=== PATIENT | female | born 1930 | race Caucasian/White ===

== ENCOUNTER → 2016-05-28 | Outpatient (CLI) | payer OTHER, MEDICARE | LOC: MMPC 10:00 | PROVIDERS: ATTEND Physician Assistant | DX: M54.5 Low back pain (principal); M48.06 Spinal stenosis, lumbar region; S32.011S Stable burst fracture of first lumbar vertebra, sequela; M41.9 Scoliosis, unspecified | CPT/HCPCS: 99214; G0463 ==

== ENCOUNTER 2016-06-05 13:17 | Inpatient (IN) | payer OTHER, MEDICARE ==
[2016-06-05] MEDS ORDERED: ONDANSETRON 4 MG/2 ML VIAL IVP ONE (13:24)
[2016-06-05] MEDS ORDERED: MORPHINE SULFATE 4 MG/1 ML IVP ONE (13:24)
[2016-06-05] MEDS ORDERED: Sodium Chloride 0.9% 1,000 ML PRIMARY IV ONE (13:24)
--- NOTE | 2016-06-05 13:27 | PDOC ---
Gen Adult / Medical Screen HPI - General Chief Complaint: General Medical Stated Complaint: abd pain Date Seen by Provider: 06/05/16 Time Seen by Provider: 13:23 Source: POSITIVE: Patient Exam Limitations: POSITIVE: No limitations Nurse's Notes Reviewed & Considered: Yes - Indicators Temperature Between 95 and 101 Degrees: Yes Respirations Between 12 and 20: Yes Blood Pressure Between 100-165 (sys) and 60-100 (ceron): Yes Pulse Range Between 60-105 (100 for age > 60 years): Yes Severe Pain (Greater than 5/10 Reported): Yes (6/10 rlq pain) Chest or Abdominal Pain: Yes Inability to Walk: No Pt Reports Active High Risk Cond. (TB/Hepatitis/HIV/Chemo): No Abnormal Mental Status: No - History of Present Illness Initial Comments: The patient was brought in via EMS for abdominal pain. Patient was preparing to go to lunch today, for which she took omeprazole. After taking her medication she developed abdominal pain in the right lower and lower back pain. She does have a history of lower back pain for which she has seen a neurosurgeon. The patient denies any headache, chest pain, shortness of breath , nausea vomiting or diarrhea, no hematuria or dysuria, no rashes, no myalgias, no anxiety. Her pain is worse with movement and is better when she sits still. Body Location Affected: REPORTS: Abdomen, Back Timing: REPORTS: Abrupt Duration: 1/2 hour Similar Symptoms Previously: No Recent Care Received: REPORTS: Denies Any Prior Injuries Related to Current Complaint?: No - Patient Home Medications Home Medications: Home Medications Losartan Potassium [Cozaar] 1 tab PO DAILY #30 tab 08/09/15 Metoprolol Tartrate 50 mg PO BID #60 tab 08/09/15 Spironolactone 25 mg ORAL QD #30 tab 08/09/15 Omeprazole 2 cap PO DAILY #60 cap 01/18/16 Warfarin Sodium [Coumadin] 2.5 mg PO DAILY 01/20/16 Omeprazole 2 cap PO DAILY #60 cap 02/08/16 HYDROcodone/APAP 5/325 Tab [[place] 5/325 Tab] 1 tab PO Q8H PRN #30 tab 04/09/16 methylPREDNISolone Dose Pack [Medrol Dose Pack] 16 mg PO DAILY shazia 04/09/16 Levothyroxine Sodium [Synthroid] 88 mcg ORAL QD #30 tab 04/11/16 Hydrocodone/Acetaminophen [Hydrocodon-Acetaminophen 5-325] 0.5 tab PO Q4- 6HRSPRN #20 tab 05/28/16 - Patient Allergies Allergies/Adverse Reactions: Allergies Allergy/AdvReac Type Severity Reaction Status Date / Time aspirin AdvReac Intermediate upset Verified 06/05/16 13:38 stomach, eggs AdvReac Intermediate severe Uncoded 06/05/16 13:38 nausea Past Medical History - heen HEENT History: Cataracts Cardiovascular History: Hypertension, DVTs Respiratory History: Denies History Gastrointestinal History: GERD Additional Gastrointestinal History: does take omeprazole Genitourinary History: Denies History Endocrine History: Hypothyroidism Musculoskeletal History: Denies History Neurological History: Denies History Blood Disorders: Clotting Disorders, Other (please comment) Additional Blood Disorders History: states had blood clots in [place]. lower legs in , and 2004 Psychiatric History: Denies History History of Sexually Transmitted Diseases: No Cancer History: Breast, Other (please comment) Cancer Treatment / Date(s) of Treatment: 07/1998 History of MDRO: No History of Other Communicable Diseases: No Alcohol Use: None Substance Use Type: None Previous Surgical History: Yes Type / Date of Surgery: partial mastectomy on left, rt hip replaced, cataracts removed Anesthesia Reactions: No Malignant Hyperthermia: No Significant Family History: No pertinent family hx ROS - Limitations ROS Limitations: No Limitations Constitution: REPORTS: Denies Symptoms Cardiovascular: REPORTS: Denies Cardiac Symptoms Respiratory: REPORTS: Denies Resp Symptoms Neurological: REPORTS: Denies Neuro Symptoms Gastrointestinal: REPORTS: Abdominal Pain Endocrine: REPORTS: Denies Symptoms Musculoskeletal: REPORTS: Denies MS Symptoms Genitourinary: REPORTS: Denies Symptoms Eyes: REPORTS: Denies Symptoms ENT: REPORTS: Denies Symptoms Skin: REPORTS: Denies Skin Symptoms Lympathic: REPORTS: Denies Lympathic Symptoms Immunologic: POSITIVE: Denies Symptoms Psychiatric: POSITIVE: Denies Psych Symptoms Gen Adult/Medical Screen Exam - General Appearance General Appearance: POSITIVE: Alert, Cooperative, No Acute Distress, No Evidence of Trauma - HEENT HEENT: POSITIVE: Head Inspection Nml, Eyes Inspection Nml, Ears Inspection Nml, Nose Inspection Nml, PERRL, EOMI - Pupils Pupil Size: 4 mm: Bilateral - Neck Neck: POSITIVE: Normal Inspection, Thyroid Normal - Respiratory Respiratory: POSITIVE: No Respiratory Distress, Breath Sounds Normal, Chest Non- Tender - Cardiovascular Cardiovascular: POSITIVE: Regular Rate & Rhythm, No Murmur, No Gallop, PMI Normal - Abdomen Abdomen: Soft: (All Quadrants), Normal Bowel Sounds: (All Quadrants), Denies Tenderness: (LLQ), (LUQ), (RUQ), No Splenomegaly: (All Quadrants), No Hepatomegaly: (All Quadrants), No Guarding: (All Quadrants), No Rebound: (All Quadrants), No Palpable Pulse: (All Quadrants), No Palpabale Mass: (All Quadrants), No Distention: (All Quadrants), No Rigidity: (All Quadrants), Tenderness Noted: (RLQ) - Back Back: POSITIVE: Normal Inspection - Neurological / Psychological Mental Status: POSITIVE: Mood Normal, Affect Normal Orientation: POSITIVE: Oriented x 3, Uncooperative - Skin Skin: POSITIVE: Normal Color, Warm, Dry, No Rash - Extremities Extremity: Non-Tender: (All Extremities), Normal ROM: (All Extremities), Normal Inspection: (All Extremities) Procedures - Laceration/Wound Repair Did patient have a laceration repair: No Gen Adlt/Medical Scrn Progress - Results Reviewed by me Xrays/CTs/US Reviewed by me: Yes Discussed with Radiologist: Yes Lab Results Reviewed: Yes Lab Results:: Laboratory Results 06/05/16 Range/Units 13:55 WBC 6.62 (4.8-10.8) 10^3/uL RBC 3.44 L (4.20-5.40) 10^6/uL Hgb 10.7 L (12.0-16.0) g/dL Hct 33.2 L (37.0-47.0) % MCV 96.5 (81-99) FL MCH 31.1 H (27-31) PG MCHC 32.2 L (33-37) g/dL RDW Std Deviation 49.7 (39-50) fL RDW Coeff of Aria 14.8 H (11.5-14.5) % Plt Count 248 (140-350) 10*3/uL MPV 10.3 (7.4-12.2) FL Immature Gran % (Auto) 0.3 (0-5) % Neut % (Auto) 66.8 (50-80) % Lymph % (Auto) 18.7 (10-50) % [place] % (Auto) 10.7 (5-15) % Eos % (Auto) 3.2 (0-8) % Baso % (Auto) 0.3 (0-1) % Immature Gran # (Auto) 0.02 10*3/UL Neut # (Auto) 4.42 10*3/UL Lymph # (Auto) 1.24 10*3/uL 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[employer] BUN/Creatinine Ratio 25.88 H (6-20) Glucose 92 (78-110) mg/dL Calculated Osmolality 294.0 H (267-292) mOsm/kg Calcium 10.3 (8.7-10.7) mg/dL Magnesium 1.4 L (1.6-2.4) mg/dL Total Bilirubin 0.8 (0.3-1.2) mg/dL AST 22 (8-39) IU/L ALT 30 (9-52) IU/L Alkaline Phosphatase 93 (38-126) IU/L C-Reactive Protein 1.1 H (0.0-0.9) mg/dL Total Protein 6.8 (6.1-8.0) g/dL Albumin 3.9 (3.5-4.8) g/dL Globulin 3.0 (2.50-4.10) g/dL Albumin/Globulin Ratio 1.30 (1.3-2.0) mg/g - Patient's Progress Pain Medication Addressed: POSITIVE: Yes Re-Examine Time: 15:23 Status: POSITIVE: Improved MDM / ED Course: Patient was examined, an IV started, blood drawn and sent to the lab for studies , CT scan abdomen and pelvis obtained. Patient received normal saline, morphine sulfate, and Zofran. Her pain did improve Findings: Hypomagnesemia, mild anemia, CT scan of the abdomen no acute intra- abdominal or intrapelvic abnormalities. Assessment: #1 hypomagnesemia and #2 mild anemia #3 abdominal pain resolved. Plan: Discharge home and follow up with primary care physician for anemia - Consult Counseled: POSITIVE: Patient, RE: Lab Results, RE: Radiology Results, RE: DX, RE : Need for F/U Patient Care Time - Estimated PCT Patient Care Time (In Minutes): 30 Vital Signs - VS Reviewed Vital Signs Reviewed: Yes Discharge Clinical Impression: Hypomagnesemia, Anemia, Abdominal pain Discharge Disposition: Discharged to Home Condition: Stable Patient Instructions Given at Discharge: Hypomagnesemia (ED), Anemia (ED), Acute Abdominal Pain (ED) Follow Up With: BENEDICTO YORK [Primary Care Provider] -
[2016-06-05 13:58] LABS: BASOPHILS # (AUTO) 0.02 10*3/UL; BASOPHILS % (AUTO) 0.3 % (0-1); EOSINOPHILS % (AUTO) 3.2 % (0-8); HEMATOCRIT 33.2 % (37.0-47.0); HEMOGLOBIN 10.7 g/dL (12.0-16.0); IMM GRAN % (AUTO) 0.3 % (0-5); IMM GRAN# (AUTO) 0.02 10*3/UL; LYMPHOCYTES # (AUTO) 1.24 10*3/uL; LYMPHOCYTES % (AUTO) 18.7 % (10-50); MEAN CORPUSCULAR HEMOGLOBIN 31.1 PG (27-31); MEAN CORPUSCULAR HGB CONC 32.2 g/dL (33-37); MEAN PLATELET VOLUME 10.3 FL (7.4-12.2); MONOCYTES # (AUTO) 0.71 10*3/UL (0.3-0.8); MONOCYTES % (AUTO) 10.7 % (5-15); NEUTROPHILS # (AUTO) 4.42 10*3/UL; NEUTROPHILS % (AUTO) 66.8 % (50-80); RDW COEFFICIENT OF VARIATION 14.8 % (11.5-14.5); RED BLOOD COUNT 3.44 10^6/uL (4.20-5.40); WHITE BLOOD COUNT 6.62 10^3/uL (4.8-10.8)
[2016-06-05 14:00] LABS: PLATELET MORPHOLOGY COMMENT NORMAL MORPHOLOGY (NORM)
[2016-06-05 14:11] LABS: ASPARTATE AMINO TRANSFERASE 22 IU/L (8-39); BILIRUBIN,TOTAL 0.8 mg/dL (0.3-1.2); BLOOD UREA NITROGEN 44 mg/dL (7-22); BUN/CREATININE RATIO 25.88 (6-20); C-REACTIVE PROTEIN 1.1 mg/dL (0.0-0.9); CALCIUM 10.3 mg/dL (8.7-10.7); CHLORIDE 104 meq/L (98-112); CREATININE 1.7 mg/dL (0.50-1.20); GLUCOSE 92 mg/dL (78-110); MAGNESIUM 1.4 mg/dL (1.6-2.4); POTASSIUM 5.3 meq/L (3.8-5.2); SODIUM 137 meq/L (135-145); TOTAL PROTEIN 6.8 g/dL (6.1-8.0)
[2016-06-05] MEDS ORDERED: Magnesium Sulfate 2gm (Premix) 2 GM in Premix 1 BAG IV ONE (14:27)
[2016-06-05 14:46] LABS: ERYTHROCYTE SEDIMENTATION RATE 53 MM/HR (0-20)
--- NOTE | 2016-06-05 15:13 | DI ---
CT ABDOMEN SCAN WITHOUT IV CONTRAST, 06/05/2016 2:18 PM : Clinical History: Abdominal pain. The patient has renal insufficiency and therefore no IV contrast wa s administered. Previous Exam: None at this facility. Scans are performed from the lower lung bases through the liver and kidneys without IV contrast. Sagi ttal and coronal reformatted images are generated. The lung bases are clear. The liver is normal. There is a 12 mm laminated gallstone in the neck of th e gallbladder. There is no edema of the gallbladder wall to indicate there is acute cholecystitis. A large hiatal hernia is present. There is no abnormality of the spleen, pancreas, and adrenal glands. Both kidneys have cystic lesions, and there is one 10 mm lesion toward the lower pole the right kidne y that has calcification around the margin of the cystic lesion. There is marked loss of renal parenc hyma involving the left kidney. There is no hydronephrosis or hydroureter. No renal or ureteral calcu li are present. There are no abnormal retrocrural or periaortic nodes. No ascites is present. There i s marked atrophy of the right psoas muscle with extensive fatty infiltration. READIN. There is marked loss of renal parenchyma of the left kidney. There is no hydronephrosis or hydrou reter. 2. Cholelithiasis. There is no evidence of acute cholecystitis. 3. Marked atrophy with fatty infiltration of the right psoas muscle. 4. Large hiatal hernia. CT PELVIS SCAN WITHOUT IV CONTRAST, 06/05/2016 2:18 PM : Clinical History: See above. Previous Exam: None. Scans are performed from the inferior margin of the liver and kidneys to the symphysis pubis without IV contrast. There is no free fluid collection and there is no adenopathy. The appendix is normal. The small bowel , terminal ileum, and ileocecal valve are normal. The colon is also normal. There is a small umbilica l hernia through which only mesenteric fat has herniated. The uterus and both ovaries are atrophic bu t normal. READING: Normal CT pelvis scan.
[2016-06-05] MEDS ORDERED: DEXAMETHASONE PF 10 MG/1 ML VIAL IVP ONE (15:52)
[2016-06-05] MEDS ORDERED: ONDANSETRON 4 MG/2 ML VIAL IVP PRN (18:17)
[2016-06-05] MEDS ORDERED: NORMAL SALINE 10 ML SYRINGE FLUSH IVP PRN (18:17)
[2016-06-05] MEDS ORDERED: ACETAMINOPHEN 325 MG TABLET PO PRN (18:17)
[2016-06-05] MEDS: Metoprolol TARTRATE Tab 50 MG TAB PO SCH (20:36)
[2016-06-05] MEDS: Warfarin Tab 2.5 MG TAB PO SCH (20:36)
[2016-06-05] MEDS ORDERED: Fleet Enema w/Mineral Oil 133ml RECTAL PRN (21:26)
[2016-06-05] MEDS: MAGNESIUM 400 MG/5 ML - 30 ML (MILK OF MAGNESIA) PO PRN (22:36)
[2016-06-05] MEDS: LOSARTAN 50 MG TABLET PO SCH (22:36)
--- NOTE | 2016-06-05 23:27 | PDOC ---
History and Physical - History of Present Illness Date and Time of Service: 06/05/2016, 2320 Chief Complaint: Back and abdominal pain History of Present Illness: This very pleasant 85-year-old female that has chronic kidney disease, genital disc disease, recently diagnosed, GERD, and a history of DVT, who came in today complaining that sometime after lunch and after she took her omeprazole she developed sudden onset of lower abdominal pain on the right side and back pain. She stated it was quite severe. She thinks she could be constipated, but denies any nausea, fever, chills or blood in the stool. She states that the pain was very similar to her prior admission in which we found degenerative lumbar disc disease. She met with Dr. Tate and his PA, Francoise Esteban, and they stated to the patient that she should not do surgery. They prescribe hydrocodone, and the patient did not try that for her pain today. They told the patient to take it sparingly and she tried to follow those recommendations. After the onset of pain, she just couldn't walk. She states it felt much better laying down. Any time she stands up the pain gets much worse. She had a CT scan of her abdomen and pelvis that showed a normal appendix, although not done with rectal contrast or contrast at all. In addition, the patient had severe renal atrophy on the right and psoas muscle atrophy on the right. She does not have any inflammatory symptoms. She pointed all over on her abdomen as to the location of her pain but concentrated most of it in the right lower quadrant and there was no rebound tenderness on my exam. Past Medical History Medical History: GERD. DVT. hypothyroidism. 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 Paroxysmal/chronic intermittent atrial fibrillation noted on prior hospital stay on Coumadin Surgical History: Cataract Extraction. Breast surgery for breast cancer. Total Hip Replacement, right side Pertinent Family History: No history of diabetes in the family. Both her parents had heart disease. Past Social History: She does not smoke or drink. She is 3 children described as healthy, son in [place], a child in [place], and another living elsewhere. She is . He is alone here in [facility] [address]. Tobacco Use: Never Smoker Substance Use Type: None Alcohol Use: None Medication / Allergies Home Medications: Home Medications Medication Instructions Recorded Confirmed Type Losartan Potassium [Cozaar] 1 tab PO DAILY #30 tab 08/09/15 06/05/16 Clinic Metoprolol Tartrate 50 mg PO BID #60 tab 08/09/15 06/05/16 Clinic Warfarin Sodium [Coumadin] 2.5 mg PO DAILY 01/20/16 06/05/16 History Omeprazole 2 cap PO DAILY #60 cap 02/08/16 06/05/16 Clinic Levothyroxine Sodium [Synthroid] 88 mcg ORAL QD #30 tab 04/11/16 06/05/16 Clinic Allergies/Adverse Reactions: Allergies Allergy/AdvReac Type Severity Reaction Status Date / Time aspirin AdvReac Intermediate upset Verified 06/05/16 13:38 stomach, eggs AdvReac Intermediate severe Uncoded 06/05/16 13:38 nausea Review of Systems - Constitutional Constitutional: REPORTS: Weakness (When she stands up in particular and tries to walk.) - Respiratory Respiratory: DENIES: Negative System Review, Cough, Sputum, Dyspnea At Rest, Dyspnea with Exertion, Pleuritic Pain, Hemoptysis, Wheezing, Other, See HPI - Cardiovascular Cardiovascular: DENIES: Negative System Review, Chest Pain, Edema, Syncope, Palpitations, Orthopnea, Paroxysmal Nocturnal Dyspnea, Other, See HPI - Gastrointestinal Gastrointestinal / Abdominal: REPORTS: Constipation, Abdominal Pain, See HPI - Genitourinary Genitourinary: REPORTS: Incontinence (Chronic) - Musculoskeletal Musculoskeletal: REPORTS: Back Pain Exam - Vitals Vital Signs: Vital Signs Vital Signs - Last Taken Temperature 97.0 F 06/05/16 20:31 Pulse Rate 63 06/05/16 20:31 Respiratory Rate 20 06/05/16 20:31 Blood Pressure 157/52 06/05/16 20:31 Pulse Ox 91 06/05/16 20:31 - General General Appearance: POSITIVE: No Acute Distress, Cooperative - Head Head Exam: POSITIVE: Normal Inspection, Normocephalic, Atraumatic - Eye Eye Exam: POSITIVE: No Scleral Icterus - ENT ENT Exam: POSITIVE: Mucous Membranes Moist - Neck Neck Exam: POSITIVE: Normal Inspection - Respiratory Respiratory Exam: POSITIVE: Clear to Auscultation - Bilaterally, Breathing Non Labored, Normal to Percussion and Palpation - Cardiovascular Cardiovascular Exam: POSITIVE: RRR, No Murmur, No Clicks, No Gallops, No Rubs, No JVD - GI/Abdominal GI/Abdominal Exam: POSITIVE: Normal Bowel Sounds, Non Tender, Non Distended, Soft - Rectal Rectal Exam: POSITIVE: Deferred - External Exam: POSITIVE: Deferred Exam: POSITIVE: Deferred - Extremities Extremities Exam: POSITIVE: No Clubbing Present, No Cyanosis Present, +1 Edema ( Some edema in lower extremities.) - Back Back Exam: POSITIVE: No CVA Tenderness - Neurological Neurological Exam: POSITIVE: Alert, Oriented x 3, No Facial Droop, Speech Intact / Clear, Moves All Extremities Equally - Psychiatric Psychiatric Exam: POSITIVE: Normal Affect, Normal Mood - Integumentary Integumentary Exam: POSITIVE: Normal Color, Warm, Dry, Intact - Central Line Examination Central Line Present on Admission: No Results - Labs CBC and BMP: 06/05/16 13:55 06/05/16 13:55 Labs - Last 24 Hours: Laboratory Results 06/05/16 Range/Units 13:55 WBC 6.62 (4.8-10.8) 10^3/uL RBC 3.44 L (4.20-5.40) 10^6/uL Hgb 10.7 L (12.0-16.0) g/dL Hct 33.2 L (37.0-47.0) % MCV 96.5 (81-99) FL MCH 31.1 H (27-31) PG MCHC 32.2 L (33-37) g/dL RDW Std Deviation 49.7 (39-50) fL RDW Coeff of Aria 14.8 H (11.5-14.5) % Plt Count 248 (140-350) 10*3/uL MPV 10.3 (7.4-12.2) FL Immature Gran % (Auto) 0.3 (0-5) % Neut % (Auto) 66.8 (50-80) % Lymph % (Auto) 18.7 (10-50) % [place] % (Auto) 10.7 (5-15) % Eos % (Auto) 3.2 (0-8) % Baso % (Auto) 0.3 (0-1) % Immature Gran # (Auto) 0.02 10*3/UL Neut # (Auto) 4.42 10*3/UL Lymph # (Auto) 1.24 10*3/uL [place] # (Auto) 0.71 (0.3-0.8) 10*3/UL Eos # (Auto) 0.21 10*3/UL Baso # (Auto) 0.02 10*3/UL WBC Morphology Comment Normal morphology (NORM) Plt Morphology Comment Normal morphology (NORM) RBC Morph Comment Normal morphology (NORM) ESR 53 H (0-20) MM/HR Sodium 137 (135-145) meq/L Potassium 5.3 H (3.8-5.2) meq/L Chloride 104 (98-112) meq/L Carbon Dioxide 22 L (23-33) meq/L Anion Gap 11 (5-20) BUN 44 H (7-22) mg/dL Creatinine 1.7 H (0.50-1.20) mg/dL 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 The right kidney is definitely with atrophy. This difficult for me to appreciate the psoas muscle atrophy, but it was read as positive on CT scan.) Assessment and Plan - Patient Problems (1) Lumbar degenerative disc disease Current Visit: Yes Status: Acute (2) Abdominal pain Current Visit: Yes Status: Acute Qualifiers: Abdominal location: generalized Qualified Description: Generalized abdominal pain Qualifier Code(s): (R10.84) Generalized abdominal pain (3) Acute low back pain Current Visit: No Status: Acute (4) Hypomagnesemia Current Visit: Yes Status: Acute (5) Atrial fibrillation Current Visit: No Status: Acute Comment: I suspect chronic and intermittent Qualifiers: Atrial fibrillation type: chronic Qualified Description: Chronic atrial fibrillation Qualifier Code(s): (I48.2) Chronic atrial fibrillation (6) Hypertension Current Visit: Yes Status: Chronic Qualifiers: Hypertension type: essential hypertension Qualified Description: Essential hypertension Qualifier Code(s): (I10) Essential (primary) hypertension (7) History of DVT (deep vein thrombosis) Current Visit: Yes Status: Chronic (8) Chronic kidney disease, stage IV (severe) Current Visit: Yes Status: Chronic - Assessment / Plan Additional Assessment/Plan Details: Admit the patient for observation. Get PT and OT consult, particularly for muscle strengthening. The patient states that she did not comply with outpatient therapy because she had a bad experience with therapy for her neck problems in the past. Try Solu-Medrol Dosepak again. We'll get sedimentation rate and CRP, if elevated, consider monitoring for potential discitis although on my spine examination palpation of the lower spine did locate the tender points for the back pain, but the pain was not exquisite enough to consider discitis as a diagnosis although it is in the differential. Continue home medications. Medications for pain. Overall, I think that the patient fails this then we may need to consider looking at other options for living such as either assisted living or even halfway facility. The patient did not recall a lot of details from the prior hospital stay, and I think she may warrant a cognitive evaluation saw have OT assess that DO NOT RESUSCITATE CODE STATUS.
[2016-06-06] MEDS: HYDROcodone-APAP 5 MG -325 MG TABLET PO PRN ×2 (05:00→21:08)
[2016-06-06 05:41] LABS: BASOPHILS # (AUTO) 0.01 10*3/UL; BASOPHILS % (AUTO) 0.2 % (0-1); EOSINOPHILS % (AUTO) 0 % (0-8); HEMATOCRIT 34.1 % (37.0-47.0); IMM GRAN % (AUTO) 0.2 % (0-5); IMM GRAN# (AUTO) 0.01 10*3/UL; LYMPHOCYTES # (AUTO) 0.59 10*3/uL; LYMPHOCYTES % (AUTO) 12.5 % (10-50); MEAN CORPUSCULAR HEMOGLOBIN 30.9 PG (27-31); MEAN CORPUSCULAR HGB CONC 32.3 g/dL (33-37); MONOCYTES # (AUTO) 0.12 10*3/UL (0.3-0.8); MONOCYTES % (AUTO) 2.5 % (5-15); NEUTROPHILS % (AUTO) 84.6 % (50-80); RDW COEFFICIENT OF VARIATION 14.7 % (11.5-14.5); RED BLOOD COUNT 3.56 10^6/uL (4.20-5.40); WHITE BLOOD COUNT 4.73 10^3/uL (4.8-10.8)
[2016-06-06] MEDS: LEVOTHYROXINE 88 MCG TABLET PO SCH (05:49)
[2016-06-06 05:56] LABS: BLOOD UREA NITROGEN 41 mg/dL (7-22); BUN/CREATININE RATIO 22.77 (6-20); C-REACTIVE PROTEIN 1.3 mg/dL (0.0-0.9); CALCIUM 10.4 mg/dL (8.7-10.7); CHLORIDE 103 meq/L (98-112); CREATININE 1.8 mg/dL (0.50-1.20); GLUCOSE 159 mg/dL (78-110); MAGNESIUM 2.2 mg/dL (1.6-2.4); POTASSIUM 4.8 meq/L (3.8-5.2); SODIUM 136 meq/L (135-145)
[2016-06-06 06:20] LABS: PLATELET MORPHOLOGY COMMENT NORMAL MORPHOLOGY (NORM)
[2016-06-06 06:23] LABS: ERYTHROCYTE SEDIMENTATION RATE 53 MM/HR (0-20)
[2016-06-06] MEDS: OMEPRAZOLE 20 MG CAPSULE PO SCH (06:48)
[2016-06-06] MEDS: LOSARTAN 50 MG TABLET PO SCH (08:33)
[2016-06-06] MEDS: Metoprolol TARTRATE Tab 50 MG TAB PO SCH ×2 (08:33→20:48)
--- NOTE | 2016-06-06 09:11 | DI ---
MRI LUMBAR SPINE SCAN WITHOUT IV CONTRAST, 06/06/2016 7:23 AM: Clinical History: Acute back pain. Previous Exam: 04/06/2016. Technique: Sagittal and axial T2 weighted; sagittal T1 weighted and T2 STIR; and axial PD. There is a compression fracture of L1 with displacement of the posterior margin of this vertebral bod y into the canal. There is loss of height of at least two thirds of the original height, and the abse nce of any increased signal intensity on the sagittal STIR sequence indicates this is old. It has not changed from the previous study. Since the previous exam, invagination of the inferior endplate with sclerosis of the anterior and superior margin of T12 has developed. The sagittal STIR sequence shows only modest increased activity in this vertebral body. The presence of sclerosis and the modest acti vity on the STIR sequence would be consistent with a subacute compression fracture with minimal loss of height. There are old compression fractures of the superior endplates of L2 and L5, unchanged. Dis c space narrowing is present at all lumbar levels with associated desiccation change. The cord termin ates at T12 and the conus medullaris is normal. The disc spaces from T9-10 through T11-12 show mild c ircumferentially bulging but not herniated discs without canal or neural foraminal stenosis. T12-L1 s hows displacement of the vertebral body into the canal but there is no canal stenosis or significant neural foraminal stenosis. L1-2 has projection of the inferior posterior margin of the body of L1 int o the canal but there is no canal stenosis. There is bilateral neural foraminal stenosis but the nerv e roots still exit appropriately. L2-3 and L3-4 have a circumferentially bulging but not herniated di scs without canal or neural foraminal stenosis. L4-5 has a circumferentially bulging but not herniate d disc and marked hypertrophic changes of the apophyseal joints and ligamentum flavum. The cross-sect ional area of the canal is at the lower limits of normal and there is no significant neural foraminal stenosis. L5-S1 has a bulging but not herniated disc without canal or neural foraminal stenosis. Readin. There is a subacute compression fracture of T12 with mild loss of height that is new since the pr evious study from 04/06/2016. There are old compression fractures of L1, L2, and L5. Portions of the L 1 vertebral body extending into the canal at T12-L1 and L1-2, and both levels show no canal or neural foraminal stenosis. 2. There are bulging but not herniated discs without canal or significant neural foraminal stenosis from T9-10 through T11-12, and from L2-3 through L5-S1. Extensive degenerative hypertrophic changes o f the apophyseal joints and ligamentum flavum are present at L4-5.
--- NOTE | 2016-06-06 14:18 | PDOC(PROG) ---
Date and Time of Service: 06/06/2016, 1420 Interval History: Patient doing a little better today. Pain is still there but not as bad. No nausea or vomiting. No chest pain. Is going to do therapy this afternoon. Objective : Data - Labs CBC and BMP: 06/06/16 05:08 06/06/16 05:08 Labs - Last 24 Hours: Laboratory Results 06/05/16 06/06/16 Range/Units 13:55 05:08 WBC 6.62 4.73 L (4.8-10.8) 10^3/uL RBC 3.44 L 3.56 L (4.20-5.40) 10^6/uL Hgb 10.7 L 11.0 L (12.0-16.0) g/dL Hct 33.2 L 34.1 L (37.0-47.0) % MCV 96.5 95.8 (81-99) FL MCH 31.1 H 30.9 (27-31) PG MCHC 32.2 L 32.3 L (33-37) g/dL RDW Std Deviation 49.7 49.5 (39-50) fL RDW Coeff of Aria 14.8 H 14.7 H (11.5-14.5) % Plt Count 248 275 (140-350) 10*3/uL MPV 10.3 11.0 (7.4-12.2) FL Immature Gran % (Auto) 0.3 0.2 (0-5) % Neut % (Auto) 66.8 84.6 H (50-80) % Lymph % (Auto) 18.7 12.5 (10-50) % Swisher % (Auto) 10.7 2.5 L (5-15) % Eos % (Auto) 3.2 0 (0-8) % Baso % (Auto) 0.3 0.2 (0-1) % Immature Gran # (Auto) 0.02 0.01 10*3/UL Neut # (Auto) 4.42 4.00 10*3/UL Lymph # (Auto) 1.24 0.59 10*3/uL Swisher # (Auto) 0.71 0.12 L (0.3-0.8) 10*3/UL Eos # (Auto) 0.21 0 10*3/UL Baso # (Auto) 0.02 0.01 10*3/UL WBC Morphology Comment Normal morphology Normal morphology (NORM) Plt Morphology Comment Normal morphology Normal morphology (NORM) RBC Morph Comment Normal morphology Normal morphology (NORM) ESR 53 H 53 H (0-20) MM/HR Sodium 137 136 (135-145) meq/L Potassium 5.3 H 4.8 (3.8-5.2) meq/L Chloride 104 103 (98-112) meq/L Carbon Dioxide 22 L 23 (23-33) meq/L Anion Gap 11 10 (5-20) BUN 44 H 41 H (7-22) mg/dL Creatinine 1.7 H 1.8 H (0.50-1.20) mg/dL Estimated GFR Electric Range Servicer Electric Range Servicer BUN/Creatinine Ratio 25.88 H 22.77 H (6-20) Glucose 92 159 H (78-110) mg/dL Calculated Osmolality 294.0 H 294.0 H (267-292) mOsm/kg Calcium 10.3 10.4 (8.7-10.7) mg/dL Magnesium 1.4 L 2.2 (1.6-2.4) mg/dL Total Bilirubin 0.8 (0.3-1.2) mg/dL AST 22 (8-39) IU/L ALT 30 (9-52) IU/L Alkaline Phosphatase 93 (38-126) IU/L C-Reactive Protein 1.1 H 1.3 H (0.0-0.9) mg/dL Total Protein 6.8 (6.1-8.0) g/dL Albumin 3.9 (3.5-4.8) g/dL Globulin 3.0 (2.50-4.10) g/dL Albumin/Globulin Ratio 1.30 (1.3-2.0) mg/g - Imaging MRI Status: Report Reviewed by Me (I reviewed the MRI report. No discitis. There is a new compression fracture from the prior hospital stay. No distention of falls at home so I suspect it's probably spontaneous.) Objective : Exam - General General Appearance: No Acute Distress, Cooperative Additional General Exam Details: Vital Signs - Last Taken Temperature 97.6 F 06/06/16 12:44 Pulse Rate 67 06/06/16 12:44 Respiratory Rate 18 06/06/16 12:44 Blood Pressure 111/48 06/06/16 12:44 Pulse Ox 94 06/06/16 12:44 Upright and eating lunch in chair today. - Eye Eye Exam: No Scleral Icterus - Respiratory Respiratory Exam: Clear to Auscultation - Bilaterally, Breathing Non Labored - Cardiovascular Cardiovascular Exam: RRR, No Murmur, No Clicks, No Gallops, No Rubs, No JVD - GI/Abdominal GI/Abdominal Exam: Normal Bowel Sounds, Non Tender, Non Distended, Soft - Extremities Extremities Exam: No Clubbing Present, No Cyanosis Present, +1 Edema (Edema in left wrist which is common for the patient after having lymph node removal on her left arm in the setting of breast cancer.) - Neurological Neurological Exam: Alert, Oriented x 3, No Facial Droop, Speech Intact / Clear, Moves All Extremities Equally Additional Neurological Exam Details: I still wonder cognitively if the patient might have a little mild impairment. I will get screening for that Assessment and Plan - Patient Problems (1) Thoracic compression fracture Current Visit: Yes Status: Acute Qualifiers: Encounter type: initial encounter Fracture type: closed Qualified Description: Compression fracture of thoracic vertebra, closed, initial encounter Qualifier Code(s): (S22.000A) Wedge compression fracture of unspecified thoracic vertebra, initial encounter for closed fracture (2) Lumbar degenerative disc disease Current Visit: Yes Status: Acute (3) Abdominal pain Current Visit: Yes Status: Acute Qualifiers: Abdominal location: generalized Qualified Description: Generalized abdominal pain Qualifier Code(s): (R10.84) Generalized abdominal pain (4) Acute low back pain Current Visit: No Status: Acute (5) Hypomagnesemia Current Visit: Yes Status: Acute (6) Atrial fibrillation Current Visit: No Status: Acute Qualifiers: Atrial fibrillation type: chronic Qualified Description: Chronic atrial fibrillation Qualifier Code(s): (I48.2) Chronic atrial fibrillation (7) Hypertension Current Visit: Yes Status: Chronic Qualifiers: Hypertension type: essential hypertension Qualified Description: Essential hypertension Qualifier Code(s): (I10) Essential (primary) hypertension (8) History of DVT (deep vein thrombosis) Current Visit: Yes Status: Chronic (9) Chronic kidney disease, stage IV (severe) Current Visit: Yes Status: Chronic - Assessment / Plan Additional Assessment/Plan Details: PT and OT. Pain control will be difficult in this patient due to her chronic kidney disease. I do not think she is a good candidate for anti-inflammatories. We can try with hydrocodone. That may be somewhat compromising due to the patient' s age. Can trial muscle relaxants if necessary but will hold off on them initially. Physical therapy and occupational therapy will likely be the mainstays of therapy. I think the patient is right on the border of being able to succeed at home and I think a swing bed may be necessary. No other medication changes today.
--- NOTE | 2016-06-06 15:53 | OT.PROG ---
Progress Note Progress Note: S" I am doing okay. I have a new compression fracture in my back." O: Pt. seen from 1430 to 1500 with pt. completing Mocha Cognitive Assessment and yet to be scored. Pt. moved from modified supine position (head of bed elevated) and moving to EOB in a guarded fashion secondary to LBP of 5/10 on a pain scale. Pt. reported that she was having a hard time moving. Pt. completed sit to stand transfer form EOB to w/c with use of 4 point walker CGA/min A and mod vc's for body mechanics and to protect her back. Reviewed back precautions with pt. and discussed long-equipment options. Pt. then completed toilet transfer min A/CGA with use of 4 point walker and mod vc's for body mechanics. Pt. then completed toileting with CGA for steading patient due to balance deficits present. A: Pt. appearing to have delayed motor planning and somewhat of a flat affect. Pt. will benefit from further therapy and education on the use of long- equipment to increase function and protect he back. P: Continue POC. Earline Maza OTD, OTR/L
--- NOTE | 2016-06-06 16:50 | PT.PROG ---
Progress Note Progress Note: S. Patient stated that she is in pain this afternoon. She reports that she normally uses a cane however would be willing to try a wheeled walker. O. Patient was wheeled to the therapy gym where she performed sit to stands, long arc quads and marches all x 10. Patient was fitted for a brace and wheeled walker. K-Tape was placed on her back to help decrease pain. Patient ambulated 175 feet back to her room where she was left in bed with alarm and call light. A. Patient tolerated exercises well, she stated that she felt better with brace and walker. She reports that she was able to ambulate further with the walker compared to the cane. Patient would continue to benefit from skilled therapy to increase, strength, mobility and endurance. P. Continue POC.
[2016-06-06] MEDS: Warfarin Tab 2.5 MG TAB PO SCH (20:48)
[2016-06-07] MEDS: LEVOTHYROXINE 88 MCG TABLET PO SCH (05:32)
[2016-06-07] MEDS: MAGNESIUM 400 MG/5 ML - 30 ML (MILK OF MAGNESIA) PO PRN (07:17)
[2016-06-07] MEDS: HYDROcodone-APAP 5 MG -325 MG TABLET PO PRN ×3 (07:17→20:12)
[2016-06-07] MEDS: OMEPRAZOLE 20 MG CAPSULE PO SCH (07:17)
[2016-06-07] MEDS: Metoprolol TARTRATE Tab 50 MG TAB PO SCH ×2 (08:14→20:12)
[2016-06-07] MEDS: LOSARTAN 50 MG TABLET PO SCH (08:14)
--- NOTE | 2016-06-07 10:52 | OT.PROG ---
Progress Note Progress Note: S: pt was brought to therapy by PT services. pt was in good spirits and little pain. pt reports she lives alone and has a house keeper 1 time a week. pt reports she completes all ADL's Vangie, drives around town for shopping and dr appointments. She has medications and just takes pills out of the bottle every day, although is looking into a pill project planner. pt reports when she shops she usually uses a debit card or a check book. O: pt completed The Cognitive Performance Test. Pt scored an overall score of 4.9/5.6 This score indicates that pt may live alone with weekly checks. pt may struggle with novel situations although routines should be ok. pt did struggle with the pills boxes. She required cues to fix a few pills although was able to fix Vangie. PT may struggle with new pills added to her regimin. pt did well with shopping. washing, toast and phone task. A: pt did well and should be safe to continue to live I'ly with housekeeping checking in with her as well as family. pt was advised that there are companies that make blister packs for her pills as well as people to help her sort them into the pill boxes. pt also reported she does not have a cell phone only a land line, although she also does not have a life line, which i would reccomend P: pt did well with the CPT. we will continue to work with ADL's and Activity tolerance to discharge her home
--- NOTE | 2016-06-07 11:23 | PT.PROG ---
Progress Note Progress Note: S. Patient stated that she is feeling a little better this morning. She reports that she continues to be sore however would like to go to therapy. O. Patient ambulated 175 feet to the therapy gym where she used the nu-step x 7 minutes then performed exercises in the form of; marches, heel toe raises, ball squeezes, clamshells and sit to stands all x 10 bilaterally. Patient used the arm bike x 5 minutes then was left with OT for further therapy. A. Patient tolerated exercises well, she continues to struggle with pain and weakness. Patient reports the brace decreases pain. Patient would continue to benefit from skilled therapy to increase strength, and decrease pain. P. Continue POC.
[2016-06-07] MEDS ORDERED: Fleet Enema w/Mineral Oil 133ml RECTAL ONE (13:08)
[2016-06-07] MEDS ORDERED: MAGNESIUM 400 MG/5 ML - 30 ML (MILK OF MAGNESIA) PO ONE (13:09)
--- NOTE | 2016-06-07 14:38 | PDOC(PROG) ---
Date and Time of Service: 06/07/2016, 1435 Interval History: Intermittently complains of back pain,. She stated it was okay on my examination and then later complained to the nurse that it was worse at that time. No fevers and no chills. No nausea or vomiting. Complains of constipation. She states the brace and therapy helped unlike in the past with her neck. Objective : Data - Labs CBC and BMP: 06/06/16 05:08 06/06/16 05:08 Objective : Exam - General General Appearance: No Acute Distress, Cooperative Additional General Exam Details: Vital Signs - Last Taken Temperature 97.6 F 06/07/16 12:48 Pulse Rate 63 06/07/16 12:48 Respiratory Rate 20 06/07/16 12:48 Blood Pressure 123/51 06/07/16 12:48 Pulse Ox 94 06/07/16 12:48 - Eye Eye Exam: No Scleral Icterus - Respiratory Respiratory Exam: Clear to Auscultation - Bilaterally, Breathing Non Labored - Cardiovascular Cardiovascular Exam: RRR, No Murmur, No Clicks, No Gallops, No Rubs, No JVD - GI/Abdominal GI/Abdominal Exam: Normal Bowel Sounds, Non Tender, Non Distended, Soft - Extremities Extremities Exam: No Clubbing Present, No Edema Present, No Cyanosis Present - Neurological Neurological Exam: Alert, Oriented x 3, No Facial Droop, Speech Intact / Clear, Moves All Extremities Equally Assessment and Plan - Patient Problems (1) Thoracic compression fracture Current Visit: Yes Status: Acute Qualifiers: Encounter type: initial encounter Fracture type: closed Qualified Description: Compression fracture of thoracic vertebra, closed, initial encounter Qualifier Code(s): (S22.000A) Wedge compression fracture of unspecified thoracic vertebra, initial encounter for closed fracture (2) Lumbar degenerative disc disease Current Visit: Yes Status: Acute (3) Abdominal pain Current Visit: Yes Status: Acute Qualifiers: Abdominal location: generalized Qualified Description: Generalized abdominal pain Qualifier Code(s): (R10.84) Generalized abdominal pain (4) Acute low back pain Current Visit: No Status: Acute (5) Hypomagnesemia Current Visit: Yes Status: Acute (6) Atrial fibrillation Current Visit: No Status: Acute Qualifiers: Atrial fibrillation type: chronic Qualified Description: Chronic atrial fibrillation Qualifier Code(s): (I48.2) Chronic atrial fibrillation (7) Hypertension Current Visit: Yes Status: Chronic Qualifiers: Hypertension type: essential hypertension Qualified Description: Essential hypertension Qualifier Code(s): (I10) Essential (primary) hypertension (8) History of DVT (deep vein thrombosis) Current Visit: Yes Status: Chronic (9) Chronic kidney disease, stage IV (severe) Current Visit: Yes Status: Chronic - Assessment / Plan Additional Assessment/Plan Details: continue PT and OT pain medicationsalso start giving hydrocodone more frequently when necessary pain. Meds for Constipation
--- NOTE | 2016-06-07 16:22 | PT.PROG ---
Progress Note Progress Note: S. Patient stated that she is very sore this afternoon. O. Patient was wheeled to the therapy gym where she had heat and performed exercises in the form of; heel toe raises, seated marches, sit to stands all x 10 bilaterally, nu-step x 5 minutes. Patient ambulated 175 feet back to her room where she was left in bed with alarm and call light. A. Patient continues to struggle with pain. Patient was very fatigued this afternoon after this mornings treatment. Patient was able to ambulate with stand by guard assist. Patient would continue to benefit from skilled therapy to increase strength, mobility and endurance. P. Continue POC.
[2016-06-07] MEDS ORDERED: POLYETHYLENE GLYCOL 3350 17 GM POWDER PO ONE (18:24)
[2016-06-07] MEDS: Warfarin Tab 2.5 MG TAB PO SCH (20:13)
[2016-06-08] MEDS: HYDROcodone-APAP 5 MG -325 MG TABLET PO PRN ×2 (04:54→17:34)
[2016-06-08] MEDS: LEVOTHYROXINE 88 MCG TABLET PO SCH (05:45)
[2016-06-08 06:13] LABS: PROTHROMBIN TIME 44.2 secs (9.7-11.4)
[2016-06-08] MEDS: OMEPRAZOLE 20 MG CAPSULE PO SCH (07:29)
[2016-06-08] MEDS: POLYETHYLENE GLYCOL 3350 17 GM POWDER PO SCH (08:29)
[2016-06-08] MEDS: Metoprolol TARTRATE Tab 50 MG TAB PO SCH ×2 (08:29→20:12)
[2016-06-08] MEDS: LOSARTAN 50 MG TABLET PO SCH (08:29)
--- NOTE | 2016-06-08 14:20 | PTI REPORT ---
Thank you for the referral of Swathi Cornell. She was seen on 06/06/16 for an inpatient evaluation secondary to generalized weakness. SUBJECTIVE: The patient is an 85-year-old female. The patient states she began experiencing low back and stomach pain two days ago with an insidious onset. She has no recollection of what could have caused her symptoms. The patient states the pain is worse when she is upright and moving around. She states pain relieves when she is lying down and sitting down. The patient states she is feeling better today than she has the last couple of days. The patient states [facility] but does have a building mechanic to help her with cleaning laundry but is unsure if building mechanic will be helping her anymore. The patient ambulates using a cane at home; however, nursing dropped off a walker today and recommended the patient begin using a walker. The patient states she has a walk-in shower at home with grab bars and shower bench. She sleeps in a standard bed. She states her most trouble in the bathroom comes while toileting as he toilet has no bars to hold onto, making rising and sitting difficult. The patient's ultimate goal is to return back to home. PAST MEDICAL HISTORY: Past medical history can be found in the patient's medical record. OBJECTIVE FINDINGS: Pain: The patient rates her pain as a 6/10 on the verbal analog scale (0=no pain , 10=worst pain) at worst today. Strength: Manual muscle testing of the lower extremities was performed during today's evaluation. The patient demonstrates generalized weakness of the lower extremities with no one side being weaker than the other side. For upper extremity strength grades, refer to OT eval. Bed mobility: The patient was able to come from supine to sit independently. Transfers: The patient was able to transfer from sit to stand with upper extremity support bilaterally, needing verbal cueing and supervision. Ambulation: The patient ambulated using standard walker x30 feet with min assist and verbal cueing. Balance: The therapist had the patient perform the Sadler balance scale as a standard outcome measure. The patient scored 27/56, placing her as a HIGH fall risk on the Sadler balance scale. The patient was able to perform most tasks on the Sadler balance scale with some form of assistance or supervision but was unable to stand on one leg or place alternating feet on stool. ASSESSMENT: Problem List: Generalized weakness Decreased strength Decreased endurance Patient requires supervision for most activities Short-Term Goals: To be met by discharge from inpatient: Patient will demonstrate ability to perform sit to stand transfer independently while using appropriate assistive device. Patient will demonstrate ability to ambulate 50 feet with appropriate assistive device for in home ambulation. Long-Term Goals: To be met following discharge from inpatient: Patient will be seen by outpatient physical therapy. Patient will be independent in all activities of daily living including cleaning and laundry. Patient will demonstrate ability to ambulate up to 300 feet with appropriate assistive device for community ambulation. TREATMENT PLAN: Patient will be seen B.I.D during the week and one time per day over the weekend as an inpatient for general strengthening. INITIAL TREATMENT: Treatment today consisted of the initial evaluation activities only. Dictated by: PING Pittman Supervised by: VICTORIANO Bello
--- NOTE | 2016-06-08 14:54 | OTI REPORT ---
Thank you for the referral of Swathi Cornell. She was seen on 06/06/16 for an occupational therapy inpatient evaluation secondary to generalized weakness. SUBJECTIVE: The patient is an 85-year-old female who came in today with low back pain. She states she doesn't remember how she necessarily broke her back, she states she felt like she was just walking between rooms and she started having pain. She states that she typically tries to quilt but she hasn't been lately because her hands are very stiff. Previously the patient's left arm has had extreme amounts of lymphatic fluid in it and this hasn't changed for a couple of years. The patient states she only leaves her house once a week and does not get out very often. The patient lives at [facility]. She uses a cane to ambulate as she does not feel safe all the time. Her medical history reveals that she has lumbar degenerative disease, acute back pain, a-fib, hypertension, a history of DVTs, and chronic kidney disease. The patient's bathroom was just set up this last year to be handicapped accessible. It is a walk-in shower, but she says the shower chair does not fit her very well. She does shower herself. The patient has a lead housekeeper to help with laundry and housekeeping. She has a higher toilet but does not have grab bars by the toilet. She states that sometimes she has trouble getting up from the toilet. The patient does have a standard bed. She typically can dress herself but she does have a light coil winder. She lost her sock aide that she had from a previous hip surgery. Prior to admission the patient did have a lead housekeeper complete her laundry and help with cleaning and she was independent with cooking, getting her groceries, and driving. The patient does not have any assistance available other than her lead housekeeper once a week. All of her family lives far away and she does not have anyone to assist her. The patient's goal is to go home. There have been some concerns about the patient's cognition which will be further assessed. PAST MEDICAL HISTORY: Past medical history can be found in the patient's medical record. OBJECTIVE FINDINGS: General observations: The patient was alert and oriented x4. Activities of daily living: The patient required max assist for lower extremity dressing. She has difficulty with , she says her back pain increases to 6/10 on the verbal analog scale when she bends over. She has difficulty with mobilizing her foot to over her knee to practice dressing. The patient is independent with eating and independent with grooming after set up. For showering, the patient will more than likely need mod assist secondary to decreased balance and decreased ability to reach down low. The patient requires max assist for dressing bottom half of lower extremities and requires mod assist for balance when standing. The patient reports she is independent with toileting; however, the patient requires min assist for toilet transfer. Range of motion: Right upper extremity is within functional limits for functional tasks. Left shoulder only demonstrates 60 degrees of movement and this has been this way for quite some time. Elbow active range of motion is within functional limits. Wrist range of motion is within functional limits. Strength: The patient is very weak on the left side. Within the range of her shoulder she demonstrates strength of 2-/5. Elbow flexion/extension is 3+/5. Wrist flexion/extension is 3+/5. On the right side shoulder flexion/abduction is 3+/5. Elbow flexion/extension is 4/5. Wrist flexion/extension is 4/5. Transfers: The patient was observed to require min assist for all functional transfers. Endurance: The patient demonstrates fair activity tolerance. ASSESSMENT: Problem List: Decreased upper extremity strength Decreased independence with ADLs Decreased cognitive processing abilities Short-Term Goals: To be met by discharge from inpatient: Patient will participate in a MOCA and CPT and scores will be given at that time. Patient will dress lower extremities with modified independence with use of adaptive equipment. Patient will complete a shower with stand by assist including transfer. Patient will be able to complete a toilet transfer independently. Patient will improve upper extremity strength to 4+/5 in the elbows and hands and to 4/5 in the right shoulder. Long-Term Goals: To be met following discharge from inpatient: Patient will be discharged back to her apartment, demonstrating independence and safety with all activities of daily living and functional transfers. TREATMENT PLAN: Patient will be seen B.I.D during the week and one time per day over the weekend as an inpatient to address the above goals and objectives. INITIAL TREATMENT: Treatment today consisted of the initial evaluation followed by the patient completing dressing tasks while sitting edge of bed, functional transfer to the chair, and standing at the sink. We discussed use of adaptive equipment which the patient was willing to try as well as further testing of her cognitive abilities. BERNICE
--- NOTE | 2016-06-08 16:08 | PT AM DAY ---
Diagnosis : Weakness AM - Physical Therapy S: The patient reports she feels like she is doing better everyday and is able to move around better. She states she had a good occupational therapy session this morning and was pleased that she was able to dress her lower legs and put on her back brace mainly on her own. O: Today's therapy started down in the physical therapy department after being brought down by occupational therapy. She performed therapeutic exercises and functional activities including stair stepper x10 minutes, sit to stands with verbal cues for propre hand placement, standing marches, step ups on the #2 box x10 bilaterally, and standing balance grid with bilateral hand hold assistance x2 and verbal cues for diagonal movements. Following this the patient was able to ambulate back up to her room with walker, gait belt, and contact guard assistance and demonstrated the ability to perform all bed mobility independently. A: We will continue progressing towards independence with activities for return to home. P: Continue seeing patient BID during the week and one time per day over the weekend for transfers, ambulation, and range of motion/strengthening exercises. BERNICE
--- NOTE | 2016-06-08 16:49 | PT.PROG ---
Progress Note Progress Note: S: Pt reports she is feeling a little better after lunch and is up for participating in physical therapy session. O: This afternoon's session focused on ambulation, endurance, and general strengthening. Pt ambulated x 150' using FWW w/ CGA and verbal cueing for safety. Pt performed seated LAQ bilaterally x 10 each leg. Pt performed seated heel raises x 10. Pt performed STS x 10 using UEs to push off chair and UE support on walker while in standing w/ SPV and verbal cueing for safety. A: Pt able to tolerate this afternoon's session w/o experiencing undo fatigue. States she felt a little tired at the end of the session but felt good overall. Continues to require supervision and assistance for ambulation. Continues to benefit from skilled PT as she progresses toward discharge. P: Continue to see pt 2x/day to improve strength, endurance, and ambulation ability. Zackery Hancock, SPT
--- NOTE | 2016-06-08 18:48 | PDOC(PROG) ---
Date and Time of Service: 06/08/2016, 1845 Interval History: States that her back pain does feel better. Doing well with therapy still and does like the back brace. No nausea or vomiting. She reported to the nurse today that she had some blood on urination, and on examination she ended up having prolapse of pelvic organs. Objective : Data - Labs CBC and BMP: 06/06/16 05:08 06/06/16 05:08 Labs - Last 24 Hours: Laboratory Results 06/08/16 Range/Units 05:17 PT 44.2 H (9.7-11.4) secs INR 4.17 (0.00-5.90) N/A Objective : Exam - General General Appearance: No Acute Distress, Cooperative Additional General Exam Details: Vital Signs - Last Taken Temperature 97.1 F 06/08/16 16:45 Pulse Rate 62 06/08/16 16:45 Respiratory Rate 16 06/08/16 16:45 Blood Pressure 133/51 06/08/16 16:45 Pulse Ox 95 06/08/16 16:45 On room air oxygen - Head Head Exam: Normal Inspection, Normocephalic, Atraumatic - Eye Eye Exam: No Scleral Icterus - Respiratory Respiratory Exam: Clear to Auscultation - Bilaterally, Breathing Non Labored - Cardiovascular Cardiovascular Exam: RRR, No Murmur, No Clicks, No Gallops, No Rubs, No JVD - GI/Abdominal GI/Abdominal Exam: Normal Bowel Sounds, Non Tender, Non Distended, Soft - Extremities Extremities Exam: No Clubbing Present, No Edema Present, No Cyanosis Present - Neurological Neurological Exam: Alert, Oriented x 3, No Facial Droop, Speech Intact / Clear, Moves All Extremities Equally Assessment and Plan - Patient Problems (1) Thoracic compression fracture Current Visit: Yes Status: Acute Qualifiers: Encounter type: initial encounter Fracture type: closed Qualified Description: Compression fracture of thoracic vertebra, closed, initial encounter Qualifier Code(s): (S22.000A) Wedge compression fracture of unspecified thoracic vertebra, initial encounter for closed fracture (2) Lumbar degenerative disc disease Current Visit: Yes Status: Acute (3) Acute low back pain Current Visit: No Status: Acute (4) Hypomagnesemia Current Visit: Yes Status: Acute (5) Atrial fibrillation Current Visit: No Status: Acute Qualifiers: Atrial fibrillation type: chronic Qualified Description: Chronic atrial fibrillation Qualifier Code(s): (I48.2) Chronic atrial fibrillation (6) Hypertension Current Visit: Yes Status: Chronic Qualifiers: Hypertension type: essential hypertension Qualified Description: Essential hypertension Qualifier Code(s): (I10) Essential (primary) hypertension (7) History of DVT (deep vein thrombosis) Current Visit: Yes Status: Chronic (8) Chronic kidney disease, stage IV (severe) Current Visit: Yes Status: Chronic (9) Abdominal pain Current Visit: Yes Status: Resolved Qualifiers: Abdominal location: generalized Qualified Description: Generalized abdominal pain Qualifier Code(s): (R10.84) Generalized abdominal pain (10) Mild cognitive impairment Current Visit: Yes Status: Acute Comment: Not quite consistent with dementia, but I think the patient is at risk for developing. She is really borderline between living independently and needing assisted living at a minimum. (11) Prolapse of female pelvic organs Current Visit: Yes Status: Acute Qualifiers: Prolapse type: cystocele Cystocele location: unspecified location Qualified Description: Cystocele, unspecified cystocele location Qualifier Code(s): (N81.10) Cystocele, unspecified - Assessment / Plan Additional Assessment/Plan Details: Given the pelvic organ prolapse noted today on exam., I think the patient would be a candidate for a pessary, but she needs to be willing to see obstetrics. I talked to the patient's primary care doctor who will discuss it with her over the next few days. Terms of the compression fracture, I'm pleased to say that pain is getting better, but the constipation is a problem on pain medications. In addition to narcotics, the pelvic organ prolapse is probably making that worse. Patient needs continued PT and OT. I think the patient would benefit strongly from a swing bed to continue to see some physical therapy and occupational therapy gains, allow for home evaluation , and good planning to help this patient do well at home as she does have a mild cognitive impairment that may be an early sign of dementia. I discussed all this with the patient and she agreed with the plan.
[2016-06-09] MEDS: HYDROcodone-APAP 5 MG -325 MG TABLET PO PRN ×2 (01:34→07:12)
[2016-06-09] MEDS: LEVOTHYROXINE 88 MCG TABLET PO SCH (05:43)
[2016-06-09 06:28] LABS: PROTHROMBIN TIME 37.2 secs (9.7-11.4)
[2016-06-09] MEDS: OMEPRAZOLE 20 MG CAPSULE PO SCH (07:13)
[2016-06-09] MEDS: LOSARTAN 50 MG TABLET PO SCH (08:05)
[2016-06-09] MEDS: Metoprolol TARTRATE Tab 50 MG TAB PO SCH ×2 (08:05→20:33)
[2016-06-09] MEDS: POLYETHYLENE GLYCOL 3350 17 GM POWDER PO SCH (08:05)
--- NOTE | 2016-06-09 12:58 | OT.PROG ---
Progress Note Progress Note: S"I am doing okay." O: Pt. seen from 929 to 1014 wuth pt. moving from recliner chair to w/c with use of 4 point walker with West/CGA. Pt. then rode down to therapy gym in her w/ c. Pt. completed sit to stand transfer with use of 4 pt. walker to move to UBE/ stattionary bike. pt. pedaled on bike using UE's for 12 min of continuous ex's on resistance level 1. Education then provided to pt. obn back safty and body mechanics for functional transfers. Pt. also worked on donning and doffing her socks with the use of a sock aide and requiring mod A and mod vcs;' A: pt. making some steady gains and seems to have delayed responses and information processing. P: Continue POC. Earline Maza OTD, OTR/L
--- NOTE | 2016-06-09 14:16 | PDOC(PROG) ---
Date and Time of Service: 06/09/2016, 1416 Interval History: No chest pain. No nausea or vomiting. Has gas, but no bowel movements per her history. She states she does not feel constipated however. She states her back pain has gone to about a 3 or 4 from a 10 at admission. She continues to do well with therapy. Objective : Data - Labs CBC and BMP: 06/06/16 05:08 06/06/16 05:08 Labs - Last 24 Hours: Laboratory Results 06/09/16 Range/Units 06:09 PT 37.2 H (9.7-11.4) secs INR 3.52 (0.00-5.90) N/A Objective : Exam - General General Appearance: No Acute Distress, Cooperative Additional General Exam Details: Vital Signs - Last Taken Temperature 97.7 F 06/09/16 12:47 Pulse Rate 74 06/09/16 12:47 Respiratory Rate 18 06/09/16 12:47 Blood Pressure 109/58 06/09/16 12:47 Pulse Ox 94 06/09/16 12:47 - Respiratory Respiratory Exam: Clear to Auscultation - Bilaterally, Breathing Non Labored - Cardiovascular Cardiovascular Exam: RRR, No Murmur, No Clicks, No Gallops, No Rubs, No JVD - GI/Abdominal GI/Abdominal Exam: Normal Bowel Sounds, Non Tender, Non Distended, Soft - Extremities Extremities Exam: No Clubbing Present, No Cyanosis Present, +1 Edema (In the left upper extremity.) - Neurological Neurological Exam: Alert, Oriented x 3, No Facial Droop, Speech Intact / Clear, Moves All Extremities Equally Assessment and Plan - Patient Problems (1) Thoracic compression fracture Current Visit: Yes Status: Acute Qualifiers: Encounter type: initial encounter Fracture type: closed Qualified Description: Compression fracture of thoracic vertebra, closed, initial encounter Qualifier Code(s): (S22.000A) Wedge compression fracture of unspecified thoracic vertebra, initial encounter for closed fracture (2) Lumbar degenerative disc disease Current Visit: Yes Status: Acute (3) Acute low back pain Current Visit: No Status: Acute (4) Hypomagnesemia Current Visit: Yes Status: Acute (5) Atrial fibrillation Current Visit: No Status: Acute Qualifiers: Atrial fibrillation type: chronic Qualified Description: Chronic atrial fibrillation Qualifier Code(s): (I48.2) Chronic atrial fibrillation (6) Hypertension Current Visit: Yes Status: Chronic Qualifiers: Hypertension type: essential hypertension Qualified Description: Essential hypertension Qualifier Code(s): (I10) Essential (primary) hypertension (7) History of DVT (deep vein thrombosis) Current Visit: Yes Status: Chronic (8) Chronic kidney disease, stage IV (severe) Current Visit: Yes Status: Chronic (9) Mild cognitive impairment Current Visit: Yes Status: Acute (10) Prolapse of female pelvic organs Current Visit: Yes Status: Acute Qualifiers: Prolapse type: cystocele Cystocele location: unspecified location Qualified Description: Cystocele, unspecified cystocele location Qualifier Code(s): (N81.10) Cystocele, unspecified - Assessment / Plan Additional Assessment/Plan Details: INR is 3.5 to today, hold Coumadin today. Check PT and INR tomorrow. Continue physical therapy and occupational therapy, pain management, brace for compression fracture. Probable swing bed tomorrow. Ultimately, I think the patient needs a well device plan for making sure that there are [facility]. This will include medication assistance and also likely physical therapy and some sort of exercise program post hospital stay.
[2016-06-10] MEDS: HYDROcodone-APAP 5 MG -325 MG TABLET PO PRN ×2 (01:05→07:47)
[2016-06-10] MEDS: LEVOTHYROXINE 88 MCG TABLET PO SCH (05:33)
[2016-06-10 06:52] LABS: PROTHROMBIN TIME 27.2 secs (9.7-11.4)
[2016-06-10] MEDS: OMEPRAZOLE 20 MG CAPSULE PO SCH (07:33)
[2016-06-10 07:44] VITALS: RESP 20
[2016-06-10] MEDS: LOSARTAN 50 MG TABLET PO SCH (08:13)
[2016-06-10] MEDS: Metoprolol TARTRATE Tab 50 MG TAB PO SCH (08:13)
[2016-06-10] MEDS: POLYETHYLENE GLYCOL 3350 17 GM POWDER PO SCH (08:14)
[2016-06-10 12:13] VITALS: TEMP 97.1
--- NOTE | 2016-06-10 13:37 | DCSUMMARY ---
Hospitalization Summary Admit Date: 06/05/16 Discharge Date: 06/10/16 Hospital Course: Discharge diagnoses 1. Subacute compression fracture of T12 2. History of for DVT 3. Hypothyroidism 4. History of paroxysmal A. fib 5. History of chronic back pain with lumbar degenerative disc disease 6. Marked atrophy of the left kidney 7. Atrophy of the right psoas muscle 8. Large hiatal hernia 9. Cholelithiasis 10. Mild cognitive impairment Hospital course This is a 85 years old female with medical history significant for history of for previous DVT, chronic back pain, hypothyroidism who came into the hospital because of back pain was severe and because of that she was admitted to the hospital an MRI of the back showed subacute T12 fracture with mild loss of height also old compression fracture of L1-L2 and L5 noted. Patient was brought to the hospital was put on pain medication started physical therapy and gradually her pain level decreased breath , it was felt that she still needs get physical therapy more before she would be able to go back home. I saw her later on during her hospital stay we continued with pain medication and physical therapy and we thought that she can be switched to swing back to continue physical therapy on swing bed status. Her INR was prolonged and the Coumadin was withheld. Laboratory Results 06/05/16 06/06/16 06/08/16 Range/Units 13:55 05:08 05:17 WBC 6.62 4.73 L (4.8-10.8) 10^3/uL RBC 3.44 L 3.56 L (4.20-5.40) 10^6/uL Hgb 10.7 L 11.0 L (12.0-16.0) g/dL Hct 33.2 L 34.1 L (37.0-47.0) % MCV 96.5 95.8 (81-99) FL MCH 31.1 H 30.9 (27-31) PG MCHC 32.2 L 32.3 L (33-37) g/dL RDW Std Deviation 49.7 49.5 (39-50) fL RDW Coeff of Aria 14.8 H 14.7 H (11.5-14.5) % Plt Count 248 275 (140-350) 10*3/uL MPV 10.3 11.0 (7.4-12.2) FL Immature Gran % (Auto) 0.3 0.2 (0-5) % Neut % (Auto) 66.8 84.6 H (50-80) % Lymph % (Auto) 18.7 12.5 (10-50) % [place] % (Auto) 10.7 2.5 L (5-15) % Eos % (Auto) 3.2 0 (0-8) % Baso % (Auto) 0.3 0.2 (0-1) % Immature Gran # (Auto) 0.02 0.01 10*3/UL Neut # (Auto) 4.42 4.00 10*3/UL Lymph # (Auto) 1.24 0.59 10*3/uL [place] # (Auto) 0.71 0.12 L (0.3-0.8) 10*3/UL Eos # (Auto) 0.21 0 10*3/UL Baso # (Auto) 0.02 0.01 10*3/UL WBC Morphology Comment Normal morphology Normal morphology (NORM) Plt Morphology Comment Normal morphology Normal morphology (NORM) RBC Morph Comment Normal morphology Normal morphology (NORM) ESR 53 H 53 H (0-20) MM/HR PT 44.2 H (9.7-11.4) secs INR 4.17 (0.00-5.90) N/A Sodium 137 136 (135-145) meq/L Potassium 5.3 H 4.8 (3.8-5.2) meq/L Chloride 104 103 (98-112) meq/L Carbon Dioxide 22 L 23 (23-33) meq/L Anion Gap 11 10 (5-20) BUN 44 H 41 H (7-22) mg/dL Creatinine 1.7 H 1.8 H (0.50-1.20) mg/dL Estimated GFR 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 Machine Operator 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 Machine Operator BUN/Creatinine Ratio 25.88 H 22.77 H (6-20) Glucose 92 159 H (78-110) mg/dL Calculated Osmolality 294.0 H 294.0 H (267-292) mOsm/kg Calcium 10.3 10.4 (8.7-10.7) mg/dL Magnesium 1.4 L 2.2 (1.6-2.4) mg/dL Total Bilirubin 0.8 (0.3-1.2) mg/dL AST 22 (8-39) IU/L ALT 30 (9-52) IU/L Alkaline Phosphatase 93 (38-126) IU/L C-Reactive Protein 1.1 H 1.3 H (0.0-0.9) mg/dL Total Protein 6.8 (6.1-8.0) g/dL Albumin 3.9 (3.5-4.8) g/dL Globulin 3.0 (2.50-4.10) g/dL Albumin/Globulin Ratio 1.30 (1.3-2.0) mg/g 06/09/16 06/10/16 Range/Units 06:09 06:24 WBC (4.8-10.8) 10^3/uL RBC (4.20-5.40) 10^6/uL Hgb (12.0-16.0) g/dL Hct (37.0-47.0) % MCV (81-99) FL MCH (27-31) PG MCHC (33-37) g/dL RDW Std Deviation (39-50) fL RDW Coeff of Aria (11.5-14.5) % Plt Count (140-350) 10*3/uL MPV (7.4-12.2) FL Immature Gran % (Auto) (0-5) % Neut % (Auto) (50-80) % Lymph % (Auto) (10-50) % [place] % (Auto) (5-15) % Eos % (Auto) (0-8) % Baso % (Auto) (0-1) % Immature Gran # (Auto) 10*3/UL Neut # (Auto) 10*3/UL Lymph # (Auto) 10*3/uL [place] # (Auto) (0.3-0.8) 10*3/UL Eos # (Auto) 10*3/UL Baso # (Auto) 10*3/UL WBC Morphology Comment (NORM) Plt Morphology Comment (NORM) RBC Morph Comment (NORM) ESR (0-20) MM/HR PT 37.2 H 27.2 H (9.7-11.4) secs INR 3.52 2.59 (0.00-5.90) N/A Sodium (135-145) meq/L Potassium (3.8-5.2) meq/L Chloride (98-112) meq/L Carbon Dioxide (23-33) meq/L Anion Gap (5-20) BUN (7-22) mg/dL Creatinine (0.50-1.20) mg/dL Estimated GFR BUN/Creatinine Ratio (6-20) Glucose (78-110) mg/dL Calculated Osmolality (267-292) mOsm/kg Calcium (8.7-10.7) mg/dL Magnesium (1.6-2.4) mg/dL Total Bilirubin (0.3-1.2) mg/dL AST (8-39) IU/L ALT (9-52) IU/L Alkaline Phosphatase (38-126) IU/L C-Reactive Protein (0.0-0.9) mg/dL Total Protein (6.1-8.0) g/dL Albumin (3.5-4.8) g/dL Globulin (2.50-4.10) g/dL Albumin/Globulin Ratio (1.3-2.0) mg/g Discharge instruction Diet regular Thickness started Medications Active Medications Acetaminophen (Tylenol) 650 mg PO Q6H PRN PRN Reason: Pain or Fever Last Admin: 06/05/16 20:36 Dose: 650 mg Acetaminophen/Hydrocodone Bitart ([place] 5/325 Tab) 1 tab PO Q6H PRN PRN Reason: Pain Last Admin: 06/10/16 07:47 Dose: 1 tab Sodium Chloride (Normal Saline 0.9%) 25 mls @ 200 mls/hr IV .Post Infusion PRN PRN Reason: No Primary IV for Flush ONLY Levothyroxine Sodium (Synthroid) 88 mcg PO AC BK@0630 [facility] Last Admin: 06/10/16 05:33 Dose: 88 mcg Losartan Potassium (Cozaar) 50 mg PO DAILY [facility] Last Admin: 06/10/16 08:13 Dose: 50 mg Magnesium Hydroxide (Milk Of Magnesia Susp) 30 ml PO Q6H PRN PRN Reason: Constipation Last Admin: 06/07/16 07:17 Dose: 30 ml Metoprolol Tartrate (Lopressor Tab) 50 mg PO BID [facility] Last Admin: 06/10/16 08:13 Dose: 50 mg Omeprazole (Prilosec) 40 mg PO AC BK [facility] Last Admin: 06/10/16 07:33 Dose: 40 mg Ondansetron HCl (Zofran Inj) 4 mg IVP Q4H PRN PRN Reason: NAUSEA / VOMITING Last Admin: 06/08/16 13:08 Dose: 4 mg Polyethylene Glycol (Miralax Packet) 17 gm PO DAILY [facility] Last Admin: 06/10/16 08:14 Dose: 17 gm Sodium Chloride (Saline Flush) 5 - 20 ml IVP BID PRN PRN Reason: Flush Last Admin: 06/08/16 13:08 Dose: 10 ml Follow-up patient status will be changed to swing bed status Exam - Vitals Vital Signs: Vital Signs Temperature 97.1 F Temperature Source Temporal Artery Scan Pulse Rate [Apical] 80 Pulse Rate [Pulse Oximeter] 60 Respiratory Rate 20 Blood Pressure [Right Arm] 105/44 Pulse Ox 93 Oxygen Delivery Method Room Air Height 5 ft 3.5 in Weight 188 lb
[2016-06-10] MEDS ORDERED: Metoprolol TARTRATE Tab 50 MG TAB PO ONE (21:03)
[2016-06-10] MEDS ORDERED: Warfarin Tab 2 MG TAB PO ONE (21:03)
[2016-06-10] MEDS ORDERED: DOCUSATE 100 MG CAPSULE ONE (21:03)
[2016-06-10] MEDS ORDERED: HYDROcodone-APAP 5 MG -325 MG TABLET PO ONE (21:04)
[2016-06-11] MEDS ORDERED: HYDROcodone-APAP 5 MG -325 MG TABLET PO ONE (04:20)
[2016-06-11] MEDS ORDERED: LEVOTHYROXINE 88 MCG TABLET PO ONE (06:09)
[2016-06-11 07:07] LABS: PROTHROMBIN TIME 21.3 secs (9.7-11.4)
[2016-06-11] MEDS ORDERED: OMEPRAZOLE 40 MG CAPSULE PO ONE (07:11)
[2016-06-11] MEDS ORDERED: Metoprolol TARTRATE Tab 50 MG TAB PO ONE (08:21)
[2016-06-11] MEDS ORDERED: DOCUSATE 100 MG CAPSULE ONE (08:22)
[2016-06-11] MEDS ORDERED: LOSARTAN 50 MG TABLET PO ONE (08:22)
[2016-06-11] MEDS ORDERED: POLYETHYLENE GLYCOL 3350 17 GM POWDER ONE (08:22)
--- NOTE | 2016-06-11 16:05 | OT PM DAY ---
Diagnosis : Weakness PM - Occupational Therapy S: The patient states she has had breast cancer on her left side; therefore her left arm is weak. She lives in [facility] by herself. Her family is here sporadically as they go to [place] for the winter. O: The patient was seen in her room. She agreed to do therapeutic exercises while in her bed. She completed therapeutic exercise with red theraband in shoulder flexion, shoulder extension, triceps extension, biceps flexion, and internal/external rotation, all x15 to increase her strength to assist with postural transitions such as sit to stands and other functional transfers. A: The patient completed therapy well. She does demonstrate weakness in her left upper extremity compared to her right. P: Continue seeing patient BID during the week and one time per day over the weekend for upper extremity strengthening, ADLs, and overall functional mobility. MTDD
--- NOTE | 2016-06-11 16:39 | OT AM DAY ---
Diagnosis : Weakness AM - Occupational Therapy S: The patient reports that she is doing a little better; however, she still has some back pain. O: Today the patient transferred from supine to sit independently. While sitting edge of bed she needed increased time but was able to doff her socks. She is still having slight difficulty with donning her socks but she reports that she is getting better. She only needed min assist to don her socks today. The patient was able to don lower extremity clothing with stand by assist and contact guard assist to pull pants from ankles to waist level. Today the patient was able to dress her upper extremities independently after set up. The patient was able to walk to the sink where she completed 5 minutes of hygiene activities while standing at the sink. The patient then walked 10 more feet before transferring to her wheelchair. She was brought down to therapy where she performed upper extremity strengthening exercises including yellow theraband resisted biceps curls, internal/external rotation, triceps extension, biceps curls, and shoulder extension with the right arm; she had difficulty with the left arm due to pain. We did some functional reaching activities with cones and she completed hand strengthening with power web and digi-flex. A: The patient is starting to make more gains. Her activity tolerance is slightly improving. She was able to complete more lower extremity dressing but she still requires min assist to don socks. Her balance and ability to stay upright for longer periods of time is slightly improving but she does fatigue easily. She reports that the wheeled walker has been beneficial. P: Continue seeing patient BID during the week and one time per day over the weekend for upper extremity strengthening, ADLs, and overall functional mobility. BERNICE
[2016-06-12 06:47] LABS: PROTHROMBIN TIME 19.5 secs (9.7-11.4)
--- NOTE | 2016-06-12 10:40 | OT AM DAY ---
Diagnosis : Weakness AM - Occupational Therapy S: The patient reports that she is making gains. O: Today the patient was able to complete therapeutic exercises including upper body ergometer x3 minutes forward and 3 minutes backward, new step x10 minutes, red theraband resisted horizontal abduction, biceps curls, internal/ external rotation, shoulder adduction, and shoulder extension. The patient then performed leg exercises with two pounds including kick outs and marching x1 minute each. She also performed sit to stands x10. The patient then ambulated back to her room x50 feet with her walker and then transferred into bed. The patient was issued a walker tray to help with carrying items in her home with increased safety. A: The patient is making gains. P: Continue seeing patient BID during the week and one time per day over the weekend for upper extremity strengthening, ADLs, and overall functional mobility. MTDD
== END 2016-06-10 13:42 | disposition swing bed (61) | DRG 544 ==
LOC: ER 13:17 → MED/SURG 18:03 → OBSVTOIN 06-06 10:08
PROVIDERS: ADMIT Family Medicine; ATTEND Family Medicine
DX: E83.42 Hypomagnesemia (principal); D64.9 Anemia, unspecified; R10.9 Unspecified abdominal pain; M54.9 Dorsalgia, unspecified; M48.54XA Collapsed vertebra, not elsewhere classified, thoracic region, initial encounter for fracture; I48.2 Chronic atrial fibrillation; I10 Essential (primary) hypertension; N18.4 Chronic kidney disease, stage 4 (severe); Z86.718 Personal history of other venous thrombosis and embolism; E03.9 Hypothyroidism, unspecified; I48.0 Paroxysmal atrial fibrillation; M51.36 Other intervertebral disc degeneration, lumbar region; N26.9 Renal sclerosis, unspecified; K44.9 Diaphragmatic hernia without obstruction or gangrene; K80.20 Calculus of gallbladder without cholecystitis without obstruction; G31.84 Mild cognitive impairment of uncertain or unknown etiology; N81.10 Cystocele, unspecified
CPT/HCPCS: 36415; 72148; 74176; 80048; 80053; 83735; 85025; 85610; 85652; 86140; 94761; 96365; 96375; 97110; 97162; 97166; 97530; 97535; 99284; J1100; J2270; J2405; J3475; J7030

== ENCOUNTER 2016-06-10 13:23 | Inpatient (IN) | payer OTHER, MEDICARE ==
[2016-06-10] MEDS ORDERED: MAGNESIUM 400 MG/5 ML - 30 ML (MILK OF MAGNESIA) PO PRN (13:47)
--- NOTE | 2016-06-10 13:48 | PDOC ---
History and Physical - History of Present Illness Date and Time of Service: 06/10/2016 1:40 PM Chief Complaint: Weakness, mid back pain History of Present Illness: This is a 85 years old female with medical history significant for history of for previous DVT, chronic back pain, hypothyroidism who came into the hospital because of back pain was severe and because of that she was admitted to the hospital an MRI of the back showed subacute T12 fracture with mild loss of height also old compression fracture of L1-L2 and L5 noted. Patient was brought to the hospital was put on pain medication started physical therapy and gradually her pain level decreased breath , it was felt that she still needs get physical therapy more before she would be able to go back home. I saw her later on during her hospital stay we continued with pain medication and physical therapy and we thought that she can be switched to swing back to continue physical therapy on swing bed status. Her INR was prolonged so Coumadin was withheld. Past Medical History Medical History: GERD. DVT. hypothyroidism. 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 Paroxysmal/chronic intermittent atrial fibrillation noted on prior hospital stay on Coumadin Surgical History: Cataract Extraction. Breast surgery for breast cancer. Total Hip Replacement, right side Pertinent Family History: No history of diabetes in the family. Both her parents had heart disease. Past Social History: She does not smoke or drink. She is 3 children described as healthy, son in [place], a child in [place], and another living elsewhere. She is . He is alone here in [facility] [address]. Substance Use Type: None Medication / Allergies Home Medications: Home Medications Medication Instructions Recorded Confirmed Type Losartan Potassium [Cozaar] 1 tab PO DAILY #30 tab 08/09/15 06/10/16 Clinic Metoprolol Tartrate 50 mg PO BID #60 tab 08/09/15 06/10/16 Clinic Warfarin Sodium [Coumadin] 2.5 mg PO DAILY 01/20/16 06/10/16 History Omeprazole 2 cap PO DAILY #60 cap 02/08/16 06/10/16 Clinic Levothyroxine Sodium [Synthroid] 88 mcg ORAL QD #30 tab 04/11/16 06/10/16 Clinic Allergies/Adverse Reactions: Allergies Allergy/AdvReac Type Severity Reaction Status Date / Time aspirin AdvReac Intermediate upset Verified 06/10/16 14:05 stomach, eggs AdvReac Intermediate severe Uncoded 06/10/16 14:05 nausea Review of Systems - Review of Systems All Systems: Reviewed & No Additional Complaints Except as Stated Exam - Vitals Vital Signs: Vital Signs Height 5 ft 3.5 in - General General Appearance: POSITIVE: No Acute Distress, Obese - Head Head Exam: POSITIVE: Normal Inspection, Atraumatic - Eye Eye Exam: POSITIVE: Normal Appearance - ENT ENT Exam: POSITIVE: Normal Exam - Neck Neck Exam: POSITIVE: Normal Inspection - Respiratory Respiratory Exam: POSITIVE: Clear to Auscultation - Bilaterally - Cardiovascular Cardiovascular Exam: POSITIVE: RRR - GI/Abdominal GI/Abdominal Exam: POSITIVE: Normal Bowel Sounds, Non Tender, Non Distended, Soft - Rectal Rectal Exam: POSITIVE: Deferred - External Exam: POSITIVE: Deferred - Extremities Extremities Exam: POSITIVE: Pedal Edema - Back Back Exam: POSITIVE: Normal Inspection - Neurological Neurological Exam: POSITIVE: Alert, CN II-XII Intact, Speech Intact / Clear, Moves All Extremities Equally - Psychiatric Psychiatric Exam: POSITIVE: Flat Affect - Integumentary Integumentary Exam: POSITIVE: Normal Color Assessment and Plan - Patient Problems (1) Thoracic compression fracture Current Visit: No Status: Acute Comment: Continue current pain medications, continue PT and OT Qualifiers: Encounter type: initial encounter Fracture type: closed Qualified Description: Compression fracture of thoracic vertebra, closed, initial encounter Qualifier Code(s): (S22.000A) Wedge compression fracture of unspecified thoracic vertebra, initial encounter for closed fracture (2) History of DVT (deep vein thrombosis) Current Visit: No Status: Chronic Comment: Continue Coumadin but at a lower dosage than what she was taking before will follow her INR (3) Hypertension Current Visit: No Status: Chronic Comment: Continue same medication but a lower dosage of the losartan as blood pressure was borderline today Qualifiers: Hypertension type: essential hypertension Qualified Description: Essential hypertension Qualifier Code(s): (I10) Essential (primary) hypertension
[2016-06-10] MEDS: HYDROcodone-APAP 5 MG -325 MG TABLET PO PRN (21:03)
[2016-06-10] MEDS: Metoprolol TARTRATE Tab 50 MG TAB PO SCH (21:04)
[2016-06-10] MEDS: Warfarin Tab 2 MG TAB PO SCH (21:04)
[2016-06-10] MEDS: DOCUSATE 100 MG CAPSULE PO SCH (21:04)
[2016-06-11] MEDS: HYDROcodone-APAP 5 MG -325 MG TABLET PO PRN ×2 (04:28→20:00)
[2016-06-11] MEDS: LEVOTHYROXINE 88 MCG TABLET PO SCH (06:15)
[2016-06-11] MEDS: OMEPRAZOLE 20 MG CAPSULE PO SCH (07:09)
[2016-06-11] MEDS: LOSARTAN 50 MG TABLET PO SCH (08:21)
[2016-06-11] MEDS: POLYETHYLENE GLYCOL 3350 17 GM POWDER PO SCH (08:21)
[2016-06-11] MEDS: DOCUSATE 100 MG CAPSULE PO SCH ×2 (08:21→20:00)
[2016-06-11] MEDS: Metoprolol TARTRATE Tab 50 MG TAB PO SCH ×2 (08:21→20:00)
--- NOTE | 2016-06-11 12:16 | OT.PROG ---
Progress Note Progress Note: S: Pt. stating that she was doing okay" O: Pt. seen from 829 to 929 with pt. completing BADL's seated. Pt. engaged in face and hand washing with the use of a wash cloth seated in her chair. Pt. then moved to edge of chair and completing 3 sets of 10 upper body ex's to include shoulder shrugs, scapular elevation, scapular adduction, elbow flexion and extension, pronation and supination, wrist flexion and extension. Education provided to pt. on safety with transfer and body body mechanics yet pt. will require further intervention to obtain carry over of learning. A: Pt. making steady progress in therapy. P: Continue POC. Earline Maza OTD, OTR/L
--- NOTE | 2016-06-11 15:44 | PT.PROG ---
Progress Note Progress Note: S. Patient stated that she is feeling better this afternoon and would like to go to the therapy gym. O. Patient ambulated 175 feet to the therapy gym where she used the nu-step x 5 minutes, then performed seated exercises in the form of; heel toe raises, marches, long arc quads, ball squeezes, clamshells, all x 10 bilaterally sit to stands x 5, Patient had edema massage to bilateral lower extremities to decrease edema. Patient was left with OT for further therapy. A. Patient tolerated exercises well, she had an increase in edema in left lower extremity, Patient was able to ambulate independently with front wheeled walker this afternoon. Patient would continue to benefit from skilled therapy at this time to continue strengthening and endurance. P. Continue POC.
[2016-06-11] MEDS: Warfarin Tab 2 MG TAB PO SCH (20:00)
[2016-06-12] MEDS: HYDROcodone-APAP 5 MG -325 MG TABLET PO PRN ×3 (04:16→20:24)
[2016-06-12] MEDS: LEVOTHYROXINE 88 MCG TABLET PO SCH (06:03)
[2016-06-12] MEDS: OMEPRAZOLE 20 MG CAPSULE PO SCH (06:47)
[2016-06-12] MEDS: POLYETHYLENE GLYCOL 3350 17 GM POWDER PO SCH (08:36)
[2016-06-12] MEDS: LOSARTAN 50 MG TABLET PO SCH (08:40)
[2016-06-12] MEDS: DOCUSATE 100 MG CAPSULE PO SCH ×2 (08:40→20:25)
[2016-06-12] MEDS: Metoprolol TARTRATE Tab 50 MG TAB PO SCH ×2 (08:40→20:24)
--- NOTE | 2016-06-12 11:41 | PT.PROG ---
Progress Note Progress Note: S. Patient stated that she is feeling better this morning, she reports that she continues to be sore this today however not as much as yesterday. O. patient ambulated 175 feet to the therapy gym where she had heat and performed seated exercises in the form of; heel toe raises, marches, long arc quads, ball squeezes, clamshells, all x 10 bilaterally. Patient ambulated 175 feet back to her room where she was left in her chair with alarm and call light. A. Patient tolerated treatment well this morning, she continues to have edema in lower extremities. Patient would continue to benefit from skilled therapy to increase strength, mobility and endurance. P. Continue POC. Home Evaluation 06/12 1300
--- NOTE | 2016-06-12 12:42 | PTI REPORT ---
Thank you for the referral of Swathi Cornell. She was seen on 06/11/16 for a swingbed evaluation secondary to generalized weakness. SUBJECTIVE: The patient is an 85-year-old female. The patient was initially hospitalized secondary to back pain. It has been found out that she has a compression fracture. The patient lives in [facility] across the [address] by herself with no family around. The patient's ultimate goal is to return home. She needs to be independent in all her transfers, ambulation, and self care activities before returning home independently. The patient is working with OT on dressing activities, hygiene, and self care skills. PAST MEDICAL HISTORY: Past medical history can be found in the patient's medical record. OBJECTIVE FINDINGS: Bed mobility: The patient was able to come from supine to sit independently. Transfers: The patient still needs minimal to moderate assist of one for transfers. Ambulation: The patient is able to ambulate 200-300 feet with assist of one and a walker with minimal pain. Pain: The patient's knees remain quite sore and continue to be a limiting factor. The patient rates her back pain as a 4 to 5/10 on the verbal analog scale (0=no pain, 10=worst pain), depending on the moment. Range of motion: The patient has good range of motion of the hips, she is missing a few degrees of extension in her knees and there is some swelling there. Upper extremity range of motion is within functional status to 150 degrees of flexion and abduction. ASSESSMENT: Problem List: Generalized weakness Decreased strength Decreased endurance Patient requires supervision for most activities Short-Term Goals: To be met by discharge from swingbed: Patient will demonstrate ability to perform sit to stand transfer independently while using appropriate assistive device. Patient will demonstrate ability to ambulate 50 feet with appropriate assistive device for in home ambulation. Long-Term Goals: To be met following discharge from swingbed: Patient will be seen by outpatient physical therapy. Patient will be independent in all activities of daily living including cleaning and laundry. Patient will demonstrate ability to ambulate up to 300 feet with appropriate assistive device for community ambulation. TREATMENT PLAN: Patient will be seen B.I.D during the week and one time per day over the weekend as a swingbed patient for general strengthening. It would be nice to see if we could encourage the patient to try some pool activities. INITIAL TREATMENT: Treatment today consisted of the swingbed evaluation activities only. BERNICE
[2016-06-12] MEDS: Warfarin Tab 2 MG TAB PO SCH (20:24)
[2016-06-13] MEDS: HYDROcodone-APAP 5 MG -325 MG TABLET PO PRN ×2 (05:37→12:32)
[2016-06-13] MEDS: LEVOTHYROXINE 88 MCG TABLET PO SCH (05:37)
[2016-06-13 06:52] LABS: PROTHROMBIN TIME 17.9 secs (9.7-11.4)
[2016-06-13 07:09] VITALS: TEMP 97.6
[2016-06-13] MEDS: OMEPRAZOLE 20 MG CAPSULE PO SCH (07:11)
[2016-06-13 07:29] VITALS: RESP 16
[2016-06-13] MEDS: DOCUSATE 100 MG CAPSULE PO SCH (08:19)
[2016-06-13] MEDS: LOSARTAN 50 MG TABLET PO SCH (08:19)
[2016-06-13] MEDS: Metoprolol TARTRATE Tab 50 MG TAB PO SCH (08:19)
[2016-06-13] MEDS: POLYETHYLENE GLYCOL 3350 17 GM POWDER PO SCH (08:19)
--- NOTE | 2016-06-13 10:25 | DCSUMMARY ---
Hospitalization Summary Admit Date: 06/10/16 Discharge Date: 06/13/16 Hospital Course: Discharge diagnoses Discharge diagnoses 1. Subacute compression fracture of T12 2. History of for DVT 3. Hypothyroidism 4. History of paroxysmal A. fib 5. History of chronic back pain with lumbar degenerative disc disease 6. Marked atrophy of the left kidney 7. Atrophy of the right psoas muscle 8. Large hiatal hernia 9. Cholelithiasis Hospital course This is a 85 years old female with medical history significant for history of previous DVT, chronic back pain, hypothyroidism who came into the hospital because of back pain which was severe and because of that she was admitted to the hospital, an MRI of the back showed subacute T12 fracture with mild loss of height also old compression fracture of L1-L2 and L5 noted. Patient was admitted to the hospital was put on pain medication started physical therapy and gradually her pain level decreased , it was felt that she still needs get physical therapy more before she would be able to go back home. I saw her later on during her hospital stay we continued with pain medication and physical therapy and we thought that she can be switched to swing back to continue physical therapy on swing bed status. Her INR was prolonged and the Coumadin was withheld for a short period. She continued to do well on swing bed she andhad a home evaluation the day before discharge she did well, on the day of discharge her pain seemed to be controlled her exam was unchanged from before with some swelling in the left arm because of lymphedema and slight edema in the legs is otherwise no new changes. We thought she could be discharged home continue physical therapy as an out patient. We held her Coumadin initially because it was prolonged and we put her back on lower dosage but her INR is still on the low side so I think we can put her back on the previous dosage I did tell her to repeat her INR next week. Patient said she had had a hydrocodone at home so we didn't give her a new prescription Laboratory Results 06/13/16 Range/Units 06:14 PT 17.9 H (9.7-11.4) secs INR 1.72 (0.00-5.90) N/A Discharge instruction Diet regular Activity as started Medications Home Medications Medication Instructions Recorded Confirmed Type Losartan Potassium [Cozaar] 1 tab PO DAILY #30 tab 08/09/15 06/10/16 Clinic Metoprolol Tartrate 50 mg PO BID #60 tab 08/09/15 06/10/16 Clinic Warfarin Sodium [Coumadin] 2.5 mg PO DAILY 01/20/16 06/10/16 History Omeprazole 2 cap PO DAILY #60 cap 02/08/16 06/10/16 Clinic Levothyroxine Sodium [Synthroid] 88 mcg ORAL QD #30 tab 04/11/16 06/10/16 Clinic HYDROcodone/APAP 5/325 Tab [Germfask 1 tab PO Q6H PRN #1 tab 06/13/16 Rx 5/325 Tab] Follow-up with the Dr. anderson as scheduled on the Condition at discharge was stable for discharge Exam - Vitals Vital Signs: Vital Signs Temperature 97.6 F Temperature Source Oral Pulse Rate [Apical] 68 Pulse Rate [Pulse Oximeter] 61 Respiratory Rate 16 Blood Pressure [Right Arm] 142/53 Pulse Ox 93 Oxygen Delivery Method Room Air Height 5 ft 3.5 in Weight 188 lb - General General Appearance: POSITIVE: No Acute Distress, Cooperative, Obese - Head Head Exam: POSITIVE: Normal Inspection, Atraumatic - Eye Eye Exam: POSITIVE: Normal Appearance - ENT ENT Exam: POSITIVE: Normal Exam - Neck Neck Exam: POSITIVE: Normal Inspection - Respiratory Respiratory Exam: POSITIVE: Clear to Auscultation - Bilaterally - Cardiovascular Cardiovascular Exam: POSITIVE: RRR - GI/Abdominal GI/Abdominal Exam: POSITIVE: Normal Bowel Sounds, Non Tender, Non Distended, Soft - Rectal Rectal Exam: POSITIVE: Deferred - Extremities Additional Extremities Exam Details: Left arm is swollen compared to the right arm which is old, slightly edema in the legs - Back Back Exam: POSITIVE: Normal Inspection - Neurological Neurological Exam: POSITIVE: Alert, Oriented x 3, CN II-XII Intact, Moves All Extremities Equally - Psychiatric Psychiatric Exam: POSITIVE: Normal Affect Patient Problems - Patient Problem List (1) Thoracic compression fracture Status: Acute Qualifiers: Encounter type: initial encounter Fracture type: closed Qualified Description: Compression fracture of thoracic vertebra, closed, initial encounter Qualifier Code(s): (S22.000A) Wedge compression fracture of unspecified thoracic vertebra, initial encounter for closed fracture (2) History of DVT (deep vein thrombosis) Status: Chronic (3) Hypertension Status: Chronic Qualifiers: Hypertension type: essential hypertension Qualified Description: Essential hypertension Qualifier Code(s): (I10) Essential (primary) hypertension
--- NOTE | 2016-06-13 15:46 | OTI REPORT ---
Thank you for the referral of Swathi Lopez Dexdarron. She was seen on 06/11/16 for an occupational therapy swingbed evaluation secondary to generalized weakness. SUBJECTIVE: The patient is an 85-year-old female who is being seen secondary to having pretty extreme back pain when she first came in. She reports that her pain is better today. She does live by herself in the [facility]. She has been living there for the last 20 years. She typically likes to sew, but she has not been able to do that for quite some time secondary to decreased hand strength. The patient reports that she has not had any falls within her home. She typically uses a cane to walk with but since she has been here in the hospital she does like the wheeled walker and she does feel more stable and safe with it. Her primary entrance is a level walkway; she is then able to take the elevator to her apartment. She reports that she has a walk in shower and a higher toilet seat. There are grab bars in the shower and by the toilet. The patient states she usually does her own cooking. She does not like meals on wheels. The patient reports that she used to go to the senior center quite a bit but does not get out of her apartment too often. She does drive to the grocery store once a week to get her groceries, but recently she states that is the only time that she leaves her apartment building. The patient states she does have a tar distributor operator. She says that the sock aide that was issued to her as an inpatient has been very helpful. The patient had assistance with laundry and cleaning. She does not have any immediate family that lives in town and does not have any assistance other than the senior center coming over and helping with her laundry and cleaning tasks. The patient does want to return back to her apartment. During the patient's inpatient stay she did complete a CPT which stated that she is able to live on her own with daily to weekly supervision, depending on the task. Eventually it would be nice to do a home evaluation with this patient as she does have a wheeled walker that she is not accommodated to in her home. She states that there are a few throw rugs in her home that may be a barrier. The patient was issued a walker tray previously and this will be beneficial to continue practice carrying items throughout her home in a functional manner. PAST MEDICAL HISTORY: Past medical history can be found in the patient's medical record. OBJECTIVE FINDINGS: General observations: The patient was alert and oriented x4. Range of motion: Left upper extremity range of motion is 0 to 70 degrees. Right upper extremity range of motion is 0 to 140 degrees. She has within functional limits for elbow range of motion and wrist range of motion. Strength: Strength in the left shoulder is 2/5. Strength in the right shoulder is 3+/5. Elbow flexion/extension is 4/5. Wrist flexion/extension is 4/5. Edema: The patient does have a very edematous left upper extremity. Activities of daily living: The patient is using adaptive equipment to dress self. At times she still needs min assist and verbal cues in order to complete lower extremity dressing. She is able to independently dress upper extremities after set up. The patient is independent with feeding self and toileting self. She may need min assist for a tub/shower transfer. Endurance: The patient's activity tolerance is improving, but tends to be in the FAIR range, as she does fatigue easily and needs rest breaks. ASSESSMENT: Problem List: Decreased upper extremity strength Decreased independence with ADLs Decreased cognitive processing abilities Short-Term Goals: To be met by discharge from swingbed: Patient will be able to dress self with modified independence with use of adaptive equipment. Patient will increase upper extremity strength to 4+/5 to complete upper extremity reaching tasks such as reaching in cupboard to grab dishes independently. Patient will be able to complete a shower independently. Patient will participate in a home evaluation in order to make accommodations as needed. Long-Term Goals: To be met following discharge from swingbed: Patient will be discharged back to her apartment, demonstrating independence and safety with all activities of daily living and functional transfers. TREATMENT PLAN: Patient will be seen B.I.D during the week and one time per day over the weekend as a swingbed patient to address the above goals and objectives. INITIAL TREATMENT: Treatment today consisted of the swingbed evaluation followed by dressing task. The patient used a tar distributor operator to doff socks with verbal cues. The patient was able to don pants with use of tar distributor operator with verbal cues. The patient still requires verbal cues and demonstration to use the sock aide smoothly; she was able to do so after demonstration and verbal cues. The patient functionally transferred from her chair to the sink where she completed 5 minutes of hygiene activities in front of the sink with stand by assistance. Downstairs in therapy she completed upper extremity strengthening activities including arm bike both forward and backward followed by red theraband resisted biceps curls, internal/external rotation, and shoulder extension x15 repetitions each. MTDD
--- NOTE | 2016-06-13 15:52 | OT PM DAY ---
Diagnosis : Weakness PM - Occupational Therapy S: The patient reports no new changes. O: Today the patient completed functional activities including carrying items on her walker tray. We educated the patient on how to open and close the walker tray. The patient struggled a little bit with opening and closing as it does have to fit into a small hole that will lock the tray. We practiced opening and closing the tray several times. We then had the patient walk and grasp cones from different height levels, place them on her tray, and then walk over to a table to place them on the table. We highly emphasized safety where the patient would have to hang onto a stable surface before reaching for the cone. The patient performed therapeutic exercises including theraband resisted shoulder extension, rows, biceps curls, and internal/external rotation followed by green power web for flexion/extension. The patient attempted to put on back brace, but because her back pain had increased to a 6/10, she had difficulty reaching around herself. A: The patient's back pain had increased this afternoon. We were planning on a home evaluation tomorrow; we will reassess her back pain in the morning to see if it will be appropriate to follow through with the home evaluation. The patient did struggle a little bit today with putting on the back brace secondary to her back pain. P: Continue seeing patient BID during the week and one time per day over the weekend for upper extremity strengthening, ADLs, and overall functional mobility. BERNICE
--- NOTE | 2016-06-14 11:04 | OT PM DAY ---
Diagnosis : Weakness PM - Occupational Therapy (Home Evaluation) S: The patient reports that she has never used a walker before in her home. After the home evaluation was done, the patient stated she learned a lot of safety techniques and it was very beneficial. O: Today the patient began by walking from the entrance of her apartment complex to the door of her apartment. The patient had to use her mckenzie to open up the second door; she was able to do this independently and safely. She was able to walk to the elevator and push the buttons safely and independently and then walked to her door. Initially the patient used her mckenzie to open the door and struggled quite a bit to get her walker through the door. She tended to reach too far and this was a balance concern. The therapist educated the patient on how to open the door safely which included opening the door a little bit and then stepping into the doorway. The door is heavier and tends to swing back toward the person that is going through the door. She took five steps in and out of the doorway safely. The patient was asked to go to her bathroom. Bathroom: The patient was able to turn on the lights. There was one throw rug on the floor that was a safety concern. The patient agreed to remove this throw rug. There was also a tiny one in front of the shower which was to stop water from getting on the floor. This rug did not tend to come up; also the patient does not use her walker that far into the bathroom to get into the shower. The patient does have a handicap shower which has a seat in the shower. There is a grab bar on the inside of the shower and one on the big wall. The patient was able to demonstrate sitting down in the shower. Getting up was a little bit of a struggle as she had to place both arms on the grab bars and pull herself up at a somewhat awkward angle. The patient does have a long handled shower hose and the supplier quality engineer on the bottom of the shower is good and does not present a problem for slipping. The patient has a higher toilet already in place. She was able to sit on the toilet. There is a grab bar by the toilet paper mills; the patient used this in order to sit down. She was able to maneuver her walker safely while doing this. The patient then used walker to go to the sink and practiced reaching into the lowest drawer. The patient had a little bit of a struggle with her walker when doing this. We had her move her walker slightly out of the way. We had to do a lot of education on holding onto a stable surface when reaching in lower positions. This was highly emphasized throughout the bathroom and then kitchen area. The patient was able to steady herself while reaching into the lower cupboard. She also was educated on kicking one of the legs a little bit backward in order to place less pressure on her back. We then went into her bedroom. Bedroom: In the bedroom there was a laundry basket that was in the way. This was placed on the opposite side of the bed that the patient gets into. A chair was removed from the patient's bedroom. The patient has a chair that she sits in when she dresses. The therapist had the patient demonstrate getting in and out of bed, which she was able to do independently. We then asked the patient to practice using the tray of her walker; she still needed a verbal cue in order to do this independently. We had the patient practice getting some clothes out of her closet, placing them on her tray, and walking to the chair that she typically dresses on. The patient does have a coin machine service repairer; however, she usually uses this for kitchen tasks. The therapist did issue the patient a coin machine service repairer after the home evaluation took place so that she can have this right next to her chair where she gets dressed. The patient was educated in the fact that she needs to use the coin machine service repairer and the sock aide to get dressed. The patient had reported that she had a shoe horn, but it is only three inches long and it requires the patient to pretty much bend completely over at the waist. Secondary to her back injury, we issued the patient a long handled shoe horn as well. This is to be placed on her dresser. We had the patient walk around her bed; she did need to use the cane for this. The patient was then asked to walk to the kitchen area. Kitchen: While in the kitchen the patient was educated on reaching into high and low cupboards. She had to place her walker sideways and use her tray to put the cup and plates on the tray. The patient had a big throw rug in her kitchen which her walker got caught on. We removed the big throw rug. The patient was able to safely reach in and out of her refrigerator low and high and was able to place items on her walker tray. The patient was asked to take a cup and a plate to the kitchen table which is in the dining room area. She was able to sit in a rolling chair--we had to practice several times to do this in the safest way possible. Basically the patient needs to hang onto her table while backing up to the chair which is up against a wall in the living room. Living room: The patient then walked to the couch and was able to sit on the couch and stand up independently. A: Modifications were made to the home. Two throw rugs were removed from the kitchen and the bathroom. The patient had a lot of education provided. Furniture was moved in order to make pathways safer. The patient would benefit from the senior center coming to help with medications and a shower a couple of times a week. We will set this up with the account planner. The patient would also benefit from a [facility]--this will be discussed with the senior center as well. At this time the patient is demonstrating enough independence to go home. She would still benefit from staying one more night so we can get services into place and practice using her walk to get through doorways when the door comes back toward her. This will be discussed with Dr. Desouza as well as the pillowcase cutter. P: Continue seeing patient BID during the week and one time per day over the weekend until discharge. BERNICE
--- NOTE | 2016-06-14 11:24 | OT AM DAY ---
Diagnosis : Weakness AM - Occupational Therapy S: The patient reports she is excited to do the home evaluation. She would like to go home once she knows it is safe. O: The therapist explained to the patient what will more than likely happen during the home evaluation this afternoon. Today we had the patient try as best as she could to do all of her dressing tasks. Today the patient used a wafer line worker to doff socks independently. She was able to don pants using the wafer line worker. The patient needed one verbal cue in order to use the sock aide more efficiently but was able to do so on her own. The patient was able to dress her upper extremities independently. More instruction on the walker tray was given. The patient still needs min assist in order to keep the tray in the most upright position where it is locked in place. The patient worked on putting on her back brace; she needed a verbal cue in order to find the strap that tightens the brace as she had put the brace on the opposite side. Downstairs in therapy she worked on upper extremity strengthening with red theraband resisted biceps curls, internal/external rotation, shoulder extension , and shoulder adduction followed by hand strengthening with green power web and digi-flex bilaterally. A: This afternoon we will complete a home evaluation with the patient to assess her needs upon discharge. P: Continue seeing patient BID during the week and one time per day over the weekend for upper extremity strengthening, ADLs, and overall functional mobility. BERNICE
--- NOTE | 2016-06-14 11:49 | OT AM DAY ---
Diagnosis : Weakness AM - Occupational Therapy S: The patient reports that she thought the home evaluation was very beneficial. O: Today the patient practiced using her trimmer operator as well as the shoe horn and sock aide for dressing tasks. The patient was able to doff socks. She used her nylons on the sock aide and it worked really well. She was able to don her pants using the trimmer operator and the long handled shoe horn worked very well with her shoes today. The patient was able to complete a toilet transfer with stand by assistance. Downstairs in therapy the patient performed upper extremity strengthening including upper body ergometer x3 minutes forward and 3 minutes backward, wall pulleys with two kilograms x10 repetitions for shoulder extension, rows, biceps curls, internal/external rotation, and shoulder abduction. A: The patient is making gains and doing everything well with modified independence. The patient is getting ready to be discharged at approximately 1: 00 today. The therapist will assist the patient one more time to make sure that the patient takes one more dry run through her home; the main thing being opening and getting through her door. P: Continue seeing patient BID during the week and one time per day over the weekend until discharge. BERNICE
== END 2016-06-13 13:00 | disposition home or self-care (01) | DRG 552 ==
LOC: MED/SURG 13:40 → UNDOADMIN 13:41
PROVIDERS: ADMIT Internal Medicine; ATTEND Internal Medicine
DX: S22.080A Wedge compression fracture of T11-T12 vertebra, initial encounter for closed fracture (principal); Z86.718 Personal history of other venous thrombosis and embolism; E03.9 Hypothyroidism, unspecified; I48.0 Paroxysmal atrial fibrillation; M51.36 Other intervertebral disc degeneration, lumbar region; N26.1 Atrophy of kidney (terminal); K44.9 Diaphragmatic hernia without obstruction or gangrene; K80.20 Calculus of gallbladder without cholecystitis without obstruction; I10 Essential (primary) hypertension
CPT/HCPCS: 36415; 85610; 94761; 97110; 97124; 97162; 97166; 97530; 97535

== ENCOUNTER → 2016-06-18 | Outpatient (CLI) | payer OTHER, MEDICARE | LOC: MMPC 09:00 | PROVIDERS: ATTEND Family Medicine | DX: Z79.01 Long term (current) use of anticoagulants (principal); Z51.81 Encounter for therapeutic drug level monitoring; Z86.718 Personal history of other venous thrombosis and embolism | CPT/HCPCS: 85610 ==

== ENCOUNTER → 2016-06-20 | Outpatient (CLI) | payer OTHER, MEDICARE | LOC: MMPC 09:00 | PROVIDERS: ATTEND Family Medicine | DX: M54.5 Low back pain (principal); N81.4 Uterovaginal prolapse, unspecified | CPT/HCPCS: 99214; G0463 ==

== ENCOUNTER → 2016-08-07 | Outpatient (CLI) | payer OTHER, MEDICARE | LOC: MMPC 09:00 | PROVIDERS: ATTEND Family Medicine | DX: I10 Essential (primary) hypertension (principal); E03.9 Hypothyroidism, unspecified; E78.5 Hyperlipidemia, unspecified; M54.5 Low back pain; Z79.01 Long term (current) use of anticoagulants | CPT/HCPCS: 99214; G0463 ==

== ENCOUNTER → 2016-08-13 | Outpatient (CLI) | payer OTHER, MEDICARE | LOC: MMPC 09:00 | PROVIDERS: ATTEND Family Medicine | DX: Z79.01 Long term (current) use of anticoagulants (principal); Z51.81 Encounter for therapeutic drug level monitoring; Z86.718 Personal history of other venous thrombosis and embolism | CPT/HCPCS: 85610 ==

== ENCOUNTER → 2016-08-27 | Outpatient (CLI) | payer OTHER, MEDICARE | LOC: MMPC 09:00 | PROVIDERS: ATTEND Family Medicine | DX: Z79.01 Long term (current) use of anticoagulants (principal); Z51.81 Encounter for therapeutic drug level monitoring; Z86.718 Personal history of other venous thrombosis and embolism | CPT/HCPCS: 85610 ==

== ENCOUNTER → 2016-09-24 | Outpatient (CLI) | payer OTHER, MEDICARE | LOC: MMPC 09:00 | PROVIDERS: ATTEND Family Medicine | DX: Z79.01 Long term (current) use of anticoagulants (principal); Z51.81 Encounter for therapeutic drug level monitoring; Z86.718 Personal history of other venous thrombosis and embolism | CPT/HCPCS: 85610 ==

== ENCOUNTER → 2016-11-01 | Outpatient (CLI) | payer OTHER, MEDICARE | LOC: MMPC 09:00 | PROVIDERS: ATTEND Family Medicine | DX: Z79.01 Long term (current) use of anticoagulants (principal); Z51.81 Encounter for therapeutic drug level monitoring; Z86.718 Personal history of other venous thrombosis and embolism | CPT/HCPCS: 85610 ==

== ENCOUNTER → 2016-11-26 | Outpatient (CLI) | payer OTHER, MEDICARE | LOC: MMPC 09:00 | PROVIDERS: ATTEND Family Medicine | DX: Z79.01 Long term (current) use of anticoagulants (principal); Z51.81 Encounter for therapeutic drug level monitoring; Z86.718 Personal history of other venous thrombosis and embolism | CPT/HCPCS: 85610 ==